=== PATIENT | female | born 1950 ===

== ENCOUNTER 2016-09-30 15:12 | Inpatient (IN) ==
[2016-09-30] MEDS ORDERED: ONDANSETRON 4 MG/2 ML VIAL IV STA (15:35)
[2016-09-30] MEDS ORDERED: ONDANSETRON 4 MG/2 ML VIAL ONE (15:52)
--- NOTE | 2016-09-30 16:09 | EKG Report ---
Stationary ECG Study [facility] ER Test Date: 09/30/2016 4:07:35 PM Pat Name: ADITYA AVERY Department: Room: Gender: F Clipper Counters: : 1950 Requested by: Jose Nieto Order Number: [id number] Reading MD: ANGEL ZUNIGA Intervals [place] Rate: 58 P: 50 MT: 181 QRS: 77 QRSD: 170 T: -12 QT: 468 QTc: 465 Interpretive Statements SINUS RHYTHM WITH OCCASIONAL SUPRAVENTRICULAR PREMATURE COMPLEXES LEFT BUNDLE BRANCH BLOCK Electronically Signed On 10-02-16 15:49:14 CDT by ANGEL ZUNIGA [email or web address]
[2016-09-30 16:15] LABS: Apearance,Urine Slightly Hazy (Clear); Bilirubin,Urine Negative (Negative); Blood, Urine Negative (Negative); Glucose,Urine (UA) Negative (Negative); Ketones,Urine Negative (Negative); Mucus,Urine Occasional /LPF (Occasional); Nitrite,Urine Negative (Negative); Protein,Urine Negative; RBC,Urine <1 /HPF (0-4); Squamous Epithelial Cell,Urine Occasional /HPF (0-10); Urine Color Yellow (Yellow); Urine Specific Gravity 1.009 (1.001-1.035); Urine Urobilinogen < 2.0 EU/DL (0.2-1.0); WBC,Urine 1 /HPF (0-6)
[2016-09-30 16:35] LABS: Basophils % 0.4 % (0.0-0.8); Eosinophils # 0.4 10*3/uL (0.0-0.87); Eosinophils % 4.3 % (0.00-10.9); Hematocrit 32.8 VOL% (35.7-47.0); Hemoglobin 10.7 GM/DL (12.0-16.0); Immature Granulocytes % 0.6 %; Immature Granulocytes Absolute 0.05 #; Lymphocytes # 2.3 10*3/uL (1.4-4.0); Lymphocytes % 26.9 % (21.3-54.2); Mean Corpuscular HGB Conc 32.6 GM/DL (32-36); Mean Corpuscular Hemoglobin 29 PG (27-34); Mean Corpuscular Volume 87.5 FL (87-102); Mean Platelet Volume 8.4 FL (9.6-12.0); Monocytes # 0.6 10*3/uL (0.11-0.8); Monocytes % 6.8 % (1.7-12.7); Neutrophils # 5.2 10*3/uL (1.4-7.4); Platelet Count 336 T/CUMM (130-400); Red Blood Count 3.75 MC/CUMM (3.8-5.5); Red Cell Distribution Width 14.4 % (9.3-17.3); White Blood Count 8.6 T/CUMM (4-12)
[2016-09-30 16:55] LABS: Lactic Acid 0.9 MMOL/L (0.4-2.0)
[2016-09-30 16:56] LABS: Alanine Aminotransferase 27 U/L (13-56); Albumin 2.6 G/DL (3.4-5.0); Alkaline Phosphatase 93 U/L (45-117); Aspartate Amino Transferase 15 U/L (0-37); Bilirubin,Total < 0.39 MG/DL (0.2-1.0); Blood Urea Nitrogen 18 MG/DL (7-18); Calcium 7.9 MG/DL (8.5-10.1); Glucose 89 MG/DL (74-106); Osmolality,Calculated 273.8 MOS/KG (273-304); Potassium 3.8 MMOL/L (3.5-5.1); Sodium 137 MMOL/L (136-145); Total Protein 6.4 G/DL (6.4-8.3)
--- NOTE | 2016-09-30 19:18 | Emergency Department Note ---
Tiarra Burkett Brittany, am scribing for, and in the presence of, Joshua Preston MD 15:38. Mohan Burkett Doug C, MD, personally performed the services described in this documentation, ascribed by Jeni Mayen in my presence, and it is both accurate and complete 918 . Arrival - Arrival Chief Complaint: Weakness ED Nursing Triage Note: c/o weakness and dehydration and ?uti and ulcers to butt. pt was dcd on 09/22 with a uti but was not placed on antibitoics. Mode of Arrival: Stretcher Limitations: No Limitations Source: Patient - History of Present Illness HPI Narrative: Patient is a 66-year-old [place] female who comes emergency room complaining of nausea and vomiting abdominal pain is been going on since her recent discharge from the [facility] on 09/22/2016. Patient has a large sacral decubitus that she is being treated for over the last 3 months. Patient states she is not aware of any fever or chills but she is concerned she may have an ongoing urinary tract infection. Patient states she had been admitted to the hospital therefore 7 days. She denies any respiratory symptoms at present. She has not seen any blood in her vomitus and denies any melena or hematochezia. Onset (ago): week(s) (Started 1 week ago) Consistency: constant Severity: moderate Allergies/Adverse Reactions: Allergies Allergy/AdvReac Type Severity Reaction Status Date / Time Iodinated Contrast Media - AdvReac Unknown/Unable Verified 11/24/14 08:17 Oral and to obtain latex AdvReac Unknown/Unable Verified 11/24/14 08:17 to obtain Home Medications: Home Medications Medication Instructions Recorded Confirmed Type Folic Acid Tab 1 mg PO QAM 11/24/14 09/30/16 History Multivitamin [One Daily] 1 each PO DAILY W/BREAKFAST 11/24/14 09/30/16 History Thiamine Tab [Vitamin B1 Tab] 100 mg PO BEDTIME 11/24/14 09/30/16 History Vit B Cmplx 3/Folic AC/C/Biot 1 tablet PO QAM 11/24/14 09/30/16 History [Indigo-Emiliano Rx Tablet] Aspirin [Ecotrin] 81 mg PO QPM 10/27/15 09/30/16 History Carvedilol 3.125 mg PO BID 10/27/15 09/30/16 History Cholecalciferol (Vitamin D3) 50,000 units PO MO 10/27/15 09/30/16 History [Vitamin D3] Gabapentin 200 mg PO BEDTIME 10/27/15 09/30/16 History Mometasone/Formoterol 100-5 2 puffs PO BID 10/27/15 09/30/16 History [Dulera 100-5] Montelukast Tab [Singulair Tab] 10 mg PO DAILY 10/27/15 09/30/16 History Potassium Chloride 10 meq PO Q12H 10/27/15 09/30/16 History Vitamin E 400 unit PO QAM 10/27/15 09/30/16 History Calcium (Carb)/Vit D 600-400 1 tablet PO BID 09/30/16 09/30/16 History [Caltrate 600 + D] Furosemide Tab [Lasix Tab] 20 mg PO QAM 09/30/16 09/30/16 History Isosorbide Dinitrate 2.5 mg PO BID 09/30/16 09/30/16 History Lisinopril 2.5 mg PO QAM 09/30/16 09/30/16 History Pantoprazole Tab [Protonix Tab] 40 mg PO QPM 09/30/16 09/30/16 History Polyvinyl Alcohol [Artificial 1 drop BOTH EYES QID 09/30/16 09/30/16 History Tears] Spironolactone 25 mg PO BEDTIME 09/30/16 09/30/16 History hydrALAZINE TAB [Apresoline Tab] 10 mg PO BID 09/30/16 09/30/16 History Review of System - Review of System 12 point system: reviewed and no additional remarkable complaints except as stated - Review of System Constitutional: Absent: fever Respiratory: Present: cough (Slight cough) Gastrointestinal: Present: abdominal pain, nausea, vomiting, constipation Skin: Present: other (Wound to the buttocks area ) Medical,Surgical,& Family Hx - Medical History Cardio: History of: CHF, Hypertension, PVD, Cardiovascular Problems No history of: Aneurysm, Cardiac Dysrhythmia, Cerebrovascular Disease, Congenital Heart Disease, CA, Pacemaker, Valvular Heart Disease Psychological: History of: Depression Neurology: History of: Peripheral Neuropathy (both legs) No history of: Brain Aneurysm, Cerebral Hemorrhage, Cerebrovascular Accident , Cerebral Palsy, Dementia, Migraine, Multiple Sclerosis, Parkinson's Disease, Seizures, TIA, Vertigo, Neurologocal Cancer HEENT: History of: Eye Problem (cataract surgery), Dental Problems (poor dentition), Glaucoma No history of: Ear Problem, Oral Cancer Endocrine: History of: Diabetes Mellitus (NIDDM) (says she is diet controlled) No history of: Adrenal Disease, Diabetes Mellitus (IDDM), Dyslipidemia, Thyroid Disorder, Endocrine Cancer, Endocrine Problems Rheumatology: No history of;: Fibromyalgia, Gout, Myasthenia Gravis, Psoriasis, Rheumatoid Arthritis, Sjogrens, Systemic Lupus Erythematosus, Rheumatological Problems Respiratory: History of: Asthma, Intubation, Respiratory Problems (interstitial pulmonary fibrosis) No history of: Bronchitis, COPD, Obstructive Sleep Apnea, Pulmonary Embolism , Pulmonary Hypertension, Pneumonia, Lung Cancer Renal: No history of: Renal (Kidney) Cancer, Dialysis, Renal Failure Genitourinary: No history of: Bladder Problem, Kidney Stones, Recurring Urinary Tract Infections, Genitourinary Cancer, Problems Gastrointestinal: History of: Bowel Obstruction (partial was in the hospital in [place]), GI Problems (chronic intermittent nausea, emesis and diarrhea) No history of: Clostridium Difficile, Crohn's Disease, Diverticulitis/ Diverticulosis, Esophageal Varices, GERD, Gastrointestinal Bleed, Hemorrhoids, Hematochezia, Hepatitis, Liver Problems, Pancreatitis, Polyps, Ulcerative Colitis, Gastrointestinal Cancer Musculoskeletal: History of: Back/Neck Problems (pain- when she lays certain way ), Musculoskeletal Problems (can't walk from injury s/p fall from 4 years ago) No history of: Amputation, Degenerative Disk Disease, Herniated Disk, Osteoporosis, Musculoskeletal Cancer Hematology: History of: Anemia (hemolytic anemia) No history of: Blood Transfusion Reaction Other: History of: Anesthesia Reactions (couldn't wake her up), Anaphylaxis ( IVP dye) No history of: Cancer, Eczema, HIV, Malignant Hyperthermia, MRSA, Vancomycin- Resistant Enterococci, Skin Problems, Miscellaneous Medical Problems - Surgical History Cardiac Surgeries: Sugical HX of: Cardiac Catheterization, Cardiac Surgery ( biopsy breast, hysterectomy, sacral wound closure) Patient Denies: Femoral-Popliteal Bypass Graft, Carotid Endarterectomy, Internal Defibrillator, Vascular Access Devices Thoracic Surgeries: Patient denies;: Organ Transplant, Lobectomy Neurologic Surgeries: Patient denies: Brain Aneurysm, Cerebral Hemorrhage, Neurologic Surgery HEENT Surgeries: Surgical HX of: Eye Surgery (cataracts), Tonsilectomy & Adenoidectomy Patient denies: Carotid Endarterectomy, Thyroid Surgery Abdominal Surgeries: Patient denies: Abdominal Surgery, Appendectomy, Cholecystectomy, Colonoscopy , Gastric Bypass Surgery, EGD, Hernia Repair, Splenectomy Reproductive Surgeries: Surgical HX of;: Gynecologic Surgery, Hysterectomy Patient denies;: Breast Surgery, Section, Dilation and Curettage, Genitourinary Surgery, Tubal Ligation Orthopedic Surgeries: Patient denies;: Implanted Devices, Orthopedic Surgery, Spinal Surgery, Total Hip Replacement, Total Knee Replacement - Family History Family History: Reports;: Family Cancer (grandmother), Family Diabetes, Family Heart Disease, Family Hypertension Denies;: Family Psychiatric Problems, Family Stroke - Social History Smoking Status: Never smoker Frequency of Alcohol Use: None Type of Drug Use: None Exam Vital Signs: Vital Signs Temperature 97.6 F 09/30/16 15:17 Pulse Rate 61 09/30/16 18:31 Respiratory Rate 16 09/30/16 18:31 Blood Pressure 135/56 09/30/16 18:31 O2 Sat by Pulse Oximetry 100 09/30/16 18:31 - General General appearance: alert, in no apparent distress - Head Head exam: Present: atraumatic, normocephalic, normal inspection - Eye Eye exam: Present: normal appearance, PERRL, EOMI. Absent: scleral icterus, conjunctival injection, nystagmus, miosis, mydriasis, periorbital swelling, periorbital tenderness - ENT ENT exam: Present: normal exam, normal oropharynx, mucous membranes moist, TM's normal bilaterally, normal external ear exam - Neck Neck exam: Present: normal inspection, full ROM, trachea midline. Absent: tenderness, meningismus, lymphadenopathy, thyromegaly - Chest Chest inspection: Present: normal inspection, symmetric chest wall rise. Absent : tenderness, rash, abscess - Respiratory Respiratory exam: Present: normal lung sounds bilaterally. Absent: prolonged expiratory phase, rales, respiratory distress, rhonchi, stridor, wheezes - Cardiovascular Cardiovascular exam: Present: regular rate, normal rhythm, normal heart sounds. Absent: murmur, rubs, gallop, clicks, JVD - Abdominal Exam Abdominal exam: Present: soft, normal bowel sounds. Absent: distention, tenderness, guarding, rebound, rigidity - Rectal Exam Rectal exam: Present: deferred - Extremities Exam Extremities exam: Present: normal inspection, full ROM, normal capillary refill. Absent: tenderness, pedal edema, joint swelling, calf tenderness - Back Exam Back exam: Present: normal inspection, full ROM. Absent: tenderness, muscle spasm, rashes - Neurological Exam Neurological exam: Present: alert, oriented X3, CN II-XII intact. Absent: motor sensory deficit - Psychiatric Psychiatric exam: Present: normal affect, normal mood. Absent: depressed, agitated, anxious, flat affect, manic - Skin Skin exam: Present: warm, dry, intact, normal color, other (Patient noted to have a half dollar size decubitus ulcer at the distal sacral/coccygeal area. This is a clean base and is not draining.). Absent: rash, cyanosis, diaphoresis , erythema, pallor, mottled - Other Other exam information: Pt has a urinary cath in place. Course Course Narrative: I discussed patient's laboratory findings and physical findings with her daughter and the patient. I told him I do not see clear indication to admit her to the hospital but there was insistent that she needed to be admitted and would not follow my recommendations for outpatient wound care. They states she is presently getting that and her decubitus is worsening. Patient's clinical presentation, laboratory radiograph findings were discussed with hospitalist operator receptionist the emergency room will see the patient here in the emergency room and evaluate for possible admission. Results - Labs CBC & BMP: 09/30/16 16:21 09/30/16 16:21 Lab Results: I have reviewed the patients labs - EKG EKG results: interpreted by RENZOD EKG shows: bradycardia (58 bpm, left bundle branch block) Disposition Clinical Impression: Malaise Case discussed with: patient, patient's family Disposition: Still a Patient Condition: Stable Time of Disposition: 19:18
[2016-09-30] MEDS ORDERED: GLUCAGON 1 MG VIAL IM PRN (19:48)
[2016-09-30] MEDS ORDERED: DEXTROSE 50% 25 GM/50 ML VIAL IV PRN (19:48)
--- NOTE | 2016-09-30 20:01 | Hospitalist History & Physical ---
Assessment and Plan (1) Sacral wound Status: Chronic Assessment and plan: Patient has sacral wound which is reported to be increasing in size and does not seem to be infected at present. will consult wound care. Current Visit: Yes (2) Anemia Status: Chronic Assessment and plan: Patient seem to have chronic anemia but has worsening hemoglobin hematocrit will check stool Hemoccult iron studies B12 and folate level and reticulocyte count Current Visit: Yes (3) Abdominal pain Status: Acute Assessment and plan: Patient complaining of on and off abdominal pain especially last 2 weeks exam seems to be benign overall we will check the KUB Current Visit: Yes (4) Pulmonary fibrosis Status: Chronic Assessment and plan: History of chronic pulmonary fibrosis seems to be stable without any worsening symptoms subjectively Current Visit: Yes (5) Left bundle branch block (LBBB) Status: Chronic Current Visit: No (6) Type 2 diabetes mellitus Status: Chronic Assessment and plan: We will continue to follow blood sugar before meals and provide short-acting insulin on as needed basis Current Visit: No History of Present Illness Chief complaint: Not feeling well. Sacral wound. Nausea vomiting abdominal pain History of present illness: Ms. Kinney is a 66 year old female with history of pulmonary fibrosis hypertension and type 2 diabetes mellitus. She also has been bedridden for some years after had fall and suffered back injury. She has chronic wound on the sacrum and it is reported getting a little bigger in size and hurting. She has been getting wound care management at [facility] but is not getting better. She came to the emergency room for complaints of nausea vomiting and abdominal pain. She has history of allergies in the past and reports having this pain on and off. She had episode of vomiting yesterday afternoon and with that she has a dual bowel movement but no diarrhea or vomiting today. She has no fever. There was no hematemesis or hematochezia. She was also treated for UTI about 2 weeks ago at the [facility] and has a Lacy catheter since then. She was seen in the ER and not feeling well and requested admission. Daughter say her main concern was wound on the sacrum area which is getting bigger. There is no coughing but she is short of breath which is chronic due to pulmonary fibrosis Home Medications Medication Instructions Recorded Confirmed Type Folic Acid Tab 1 mg PO QAM 11/24/14 09/30/16 History Multivitamin [One Daily] 1 each PO DAILY W/BREAKFAST 11/24/14 09/30/16 History Thiamine Tab [Vitamin B1 Tab] 100 mg PO BEDTIME 11/24/14 09/30/16 History Vit B Cmplx 3/Folic AC/C/Biot 1 tablet PO QAM 11/24/14 09/30/16 History [Indigo-Emiliano Rx Tablet] Aspirin [Ecotrin] 81 mg PO QPM 10/27/15 09/30/16 History Carvedilol 3.125 mg PO BID 10/27/15 09/30/16 History Cholecalciferol (Vitamin D3) 50,000 units PO MO 10/27/15 09/30/16 History [Vitamin D3] Gabapentin 200 mg PO BEDTIME 10/27/15 09/30/16 History Mometasone/Formoterol 100-5 2 puffs PO BID 10/27/15 09/30/16 History [Dulera 100-5] Montelukast Tab [Singulair Tab] 10 mg PO DAILY 10/27/15 09/30/16 History Potassium Chloride 10 meq PO Q12H 10/27/15 09/30/16 History Vitamin E 400 unit PO QAM 10/27/15 09/30/16 History Calcium (Carb)/Vit D 600-400 1 tablet PO BID 09/30/16 09/30/16 History [Caltrate 600 + D] Furosemide Tab [Lasix Tab] 20 mg PO QAM 09/30/16 09/30/16 History Isosorbide Dinitrate 2.5 mg PO BID 09/30/16 09/30/16 History Lisinopril 2.5 mg PO QAM 09/30/16 09/30/16 History Pantoprazole Tab [Protonix Tab] 40 mg PO QPM 09/30/16 09/30/16 History Polyvinyl Alcohol [Artificial 1 drop BOTH EYES QID 09/30/16 09/30/16 History Tears] Spironolactone 25 mg PO BEDTIME 09/30/16 09/30/16 History hydrALAZINE TAB [Apresoline Tab] 10 mg PO BID 09/30/16 09/30/16 History Allergies Allergy/AdvReac Type Severity Reaction Status Date / Time Iodinated Contrast Media - AdvReac Unknown/Unable Verified 11/24/14 08:17 Oral and to obtain latex AdvReac Unknown/Unable Verified 11/24/14 08:17 to obtain Medical,Surgical,& Family Hx - Medical History Cardio: History of: CHF, Hypertension, PVD, Cardiovascular Problems No history of: Aneurysm, Cardiac Dysrhythmia, Cerebrovascular Disease, Congenital Heart Disease, CA, Pacemaker, Valvular Heart Disease Psychological: History of: Depression Neurology: History of: Peripheral Neuropathy (both legs) No history of: Brain Aneurysm, Cerebral Hemorrhage, Cerebrovascular Accident , Cerebral Palsy, Dementia, Migraine, Multiple Sclerosis, Parkinson's Disease, Seizures, TIA, Vertigo, Neurologocal Cancer HEENT: History of: Eye Problem (cataract surgery), Dental Problems (poor dentition), Glaucoma No history of: Ear Problem, Oral Cancer Endocrine: History of: Diabetes Mellitus (NIDDM) (says she is diet controlled) No history of: Adrenal Disease, Diabetes Mellitus (IDDM), Dyslipidemia, Thyroid Disorder, Endocrine Cancer, Endocrine Problems Rheumatology: No history of;: Fibromyalgia, Gout, Myasthenia Gravis, Psoriasis, Rheumatoid Arthritis, Sjogrens, Systemic Lupus Erythematosus, Rheumatological Problems Respiratory: History of: Asthma, Intubation, Respiratory Problems (interstitial pulmonary fibrosis) No history of: Bronchitis, COPD, Obstructive Sleep Apnea, Pulmonary Embolism , Pulmonary Hypertension, Pneumonia, Lung Cancer Renal: No history of: Renal (Kidney) Cancer, Dialysis, Renal Failure Genitourinary: No history of: Bladder Problem, Kidney Stones, Recurring Urinary Tract Infections, Genitourinary Cancer, Problems Gastrointestinal: History of: Bowel Obstruction (partial was in the hospital in [place]), GI Problems (chronic intermittent nausea, emesis and diarrhea) No history of: Clostridium Difficile, Crohn's Disease, Diverticulitis/ Diverticulosis, Esophageal Varices, GERD, Gastrointestinal Bleed, Hemorrhoids, Hematochezia, Hepatitis, Liver Problems, Pancreatitis, Polyps, Ulcerative Colitis, Gastrointestinal Cancer Musculoskeletal: History of: Back/Neck Problems (pain- when she lays certain way ), Musculoskeletal Problems (can't walk from injury s/p fall from 4 years ago) No history of: Amputation, Degenerative Disk Disease, Herniated Disk, Osteoporosis, Musculoskeletal Cancer Hematology: History of: Anemia (hemolytic anemia) No history of: Blood Transfusion Reaction Other: History of: Anesthesia Reactions (couldn't wake her up), Anaphylaxis ( IVP dye) No history of: Cancer, Eczema, HIV, Malignant Hyperthermia, MRSA, Vancomycin- Resistant Enterococci, Skin Problems, Miscellaneous Medical Problems - Surgical History Cardiac Surgeries: Sugical HX of: Cardiac Catheterization, Cardiac Surgery ( biopsy breast, hysterectomy, sacral wound closure) Patient Denies: Femoral-Popliteal Bypass Graft, Carotid Endarterectomy, Internal Defibrillator, Vascular Access Devices Thoracic Surgeries: Patient denies;: Organ Transplant, Lobectomy Neurologic Surgeries: Patient denies: Brain Aneurysm, Cerebral Hemorrhage, Neurologic Surgery HEENT Surgeries: Surgical HX of: Eye Surgery (cataracts), Tonsilectomy & Adenoidectomy Patient denies: Carotid Endarterectomy, Thyroid Surgery Abdominal Surgeries: Patient denies: Abdominal Surgery, Appendectomy, Cholecystectomy, Colonoscopy , Gastric Bypass Surgery, EGD, Hernia Repair, Splenectomy Reproductive Surgeries: Surgical HX of;: Gynecologic Surgery, Hysterectomy Patient denies;: Breast Surgery, Section, Dilation and Curettage, Genitourinary Surgery, Tubal Ligation Orthopedic Surgeries: Patient denies;: Implanted Devices, Orthopedic Surgery, Spinal Surgery, Total Hip Replacement, Total Knee Replacement - Family History Family History: Reports;: Family Cancer (grandmother), Family Diabetes, Family Heart Disease, Family Hypertension Denies;: Family Psychiatric Problems, Family Stroke - Social History Smoking Status: Never smoker Frequency of Alcohol Use: None Type of Drug Use: None Review of systems: Comprehensive review of system was done and negative unless indicated above in HPI Exam - Constitutional Vitals: Period Temp Pulse Resp BP Sys/Moon Pulse Ox Last 24 Hr 97.6 F-97.6 F 53-65 16-18 99-135/50-64 97-100 General appearance: no acute distress, under weight, other (Chronic ill looking) - Head Head exam: Present: normal inspection, normocephalic, atraumatic - Eye Eye exam: Present: EOMI. Absent: conjunctival injection, scleral icterus Pupils: Present: SHELLY, normal accommodation - ENT ENT exam: Present: normal exam, normal oropharynx - Neck Neck exam: Present: other (Supple) - Respiratory Respiratory exam: Present: rales (Bilateral equal entry with the crepitus at the bases on auscultation). Absent: accessory muscle use, rhonchi, stridor, wheezes - Cardiovascular Cardiovascular exam: Present: regular rate and rhythm. Absent: tachycardia - GI/Abdominal GI/Abdominal exam: Present: normal bowel sounds, guarding, soft. Absent: distended, tenderness - Extremities Exam Extremities exam: Present: normal inspection. Absent: edema - Back Exam Back exam: Present: other (Wound at the sacral area with a clean base) - Neurological Exam Neurological exam: Present: alert, other (Able to move all extremities) Results - Labs CBC & BMP: 09/30/16 16:21 09/30/16 16:21 Lab Results: I have reviewed the past 24 hour labs
[2016-09-30 20:10] LABS: % Iron Saturation 9.6 % (18-50)
--- NOTE | 2016-09-30 20:44 | XRay Report ---
XR abdomen 1V Indication: Abdominal pain. Comparison: Abdominal series April 10, 2016. Technique: Supine AP image of the abdomen was obtained. Findings: Reticular and linear interstitial markings in the lung bases have changed little since comparison study and likely are chronic. A component of linear fibrosis is not excluded. No organomegaly is suggested. The bowel gas pattern demonstrates a nonspecific pattern with loops of large and small bowel demonstrating presence of gas without specific findings to suggest obstruction or ileus. Bones and soft tissues demonstrate no acute findings. Impression: 1. No specific process is suggested within the abdomen or pelvis. 09/30/2016 8:40 PM PROCEDURE INTERPRETED AT [facility] DEPARTMENT OF RADIOLOGY Final Report Signed by: Dr. Jeramie Blanca
--- NOTE | 2016-09-30 20:45 | XRay Report ---
XR chest 1V Indication: History of pulmonary fibrosis. Comparison: Chest x-ray 04/08/2016 Technique: Portable AP chest was performed. Findings: Since comparison study little change is demonstrated. The heart size and mediastinal contours are stable. Scoliotic deformity is stable. Reticular stranding of the lung bases compatible with fibrosis appears stable. Impression: 1. No evidence of acute pathology. 09/30/2016 8:41 PM PROCEDURE INTERPRETED AT [facility] DEPARTMENT OF RADIOLOGY Final Report Signed by: Dr. Jeramie Blanca
[2016-09-30] MEDS: MOMETASONE/FORMOTEROL 100-5 INHALER 8.8 GM INH SCH (22:44)
[2016-09-30] MEDS: THIAMINE 100 MG TABLET PO SCH (22:44)
[2016-09-30] MEDS: POLYVINYL ALCOHOL 1.4% OPH SOLN 15 ML BOTTLE BOTH EYES SCH (22:44)
[2016-09-30] MEDS: hydrALAZINE 10 MG TABLET PO SCH (22:44)
[2016-09-30] MEDS: GABAPENTIN 100 MG CAPSULE PO SCH (22:44)
[2016-09-30] MEDS: PANTOPRAZOLE 40 MG TABLET PO SCH (22:44)
[2016-09-30] MEDS: SPIRONOLACTONE 25 MG TABLET PO SCH (22:44)
[2016-09-30] MEDS: CALCIUM (CARBONATE)/VITAMIN D 600 MG-400 UNIT TABLET PO SCH (22:44)
[2016-09-30] MEDS: CARVEDILOL 3.125 MG TABLET PO SCH (22:45)
[2016-09-30] MEDS: ENOXAPARIN 40 MG/0.4 ML SYRINGE SUBCUT SCH (22:45)
[2016-09-30] MEDS: INSULIN REGULAR 100 UNIT/ML SUBCUT SCH (22:45)
[2016-10-01 02:42] LABS: Basophils % 0.4 % (0.0-0.8); Eosinophils # 0.3 10*3/uL (0.0-0.87); Eosinophils % 3.9 % (0.00-10.9); Hematocrit 35.1 VOL% (35.7-47.0); Hemoglobin 11.3 GM/DL (12.0-16.0); Immature Granulocytes % 0.5 %; Immature Granulocytes Absolute 0.04 #; Lymphocytes # 2.1 10*3/uL (1.4-4.0); Lymphocytes % 25.9 % (21.3-54.2); Mean Corpuscular HGB Conc 32.2 GM/DL (32-36); Mean Corpuscular Hemoglobin 28 PG (27-34); Mean Corpuscular Volume 87.1 FL (87-102); Mean Platelet Volume 8.4 FL (9.6-12.0); Monocytes # 0.8 10*3/uL (0.11-0.8); Monocytes % 9.7 % (1.7-12.7); Neutrophils # 4.9 10*3/uL (1.4-7.4); Neutrophils % 59.6 % (38.7-73.9); Platelet Count 345 T/CUMM (130-400); Red Blood Count 4.03 MC/CUMM (3.8-5.5); Red Cell Distribution Width 14.4 % (9.3-17.3); White Blood Count 8.2 T/CUMM (4-12)
[2016-10-01 03:34] LABS: Folate > 24.0 NG/ML (5.4-24.0); Vitamin B12 521 PG/ML (211-911)
[2016-10-01] MEDS: FERROUS SULFATE 325 MG TABLET PO SCH ×2 (08:25→21:23)
[2016-10-01] MEDS: CARVEDILOL 3.125 MG TABLET PO SCH ×2 (08:25→21:23)
[2016-10-01] MEDS: CALCIUM (CARBONATE)/VITAMIN D 600 MG-400 UNIT TABLET PO SCH ×2 (08:25→21:23)
[2016-10-01] MEDS: MONTELUKAST 10 MG TABLET PO SCH (08:25)
[2016-10-01] MEDS: FOLIC ACID 1 MG TABLET PO SCH (08:25)
[2016-10-01] MEDS: MULTIVITAMIN (CENTRUM) TABLET PO SCH (08:25)
[2016-10-01] MEDS: POLYVINYL ALCOHOL 1.4% OPH SOLN 15 ML BOTTLE BOTH EYES SCH ×4 (08:26→21:26)
[2016-10-01] MEDS: LISINOPRIL 2.5 MG TABLET PO SCH (08:26)
[2016-10-01] MEDS: INSULIN REGULAR 100 UNIT/ML SUBCUT SCH ×4 (08:26→23:37)
[2016-10-01] MEDS: hydrALAZINE 10 MG TABLET PO SCH ×2 (08:26→23:37)
[2016-10-01] MEDS: MOMETASONE/FORMOTEROL 100-5 INHALER 8.8 GM INH SCH ×2 (08:27→21:26)
--- NOTE | 2016-10-01 08:56 | Gastrointestinal Consult Note ---
Assessment and Plan (1) Anemia Status: Chronic Assessment and plan: This patient had a normal colonoscopy done in May 2010 which demonstrated tortuous colon with diverticulosis but otherwise was completely normal. I do not believe that her fibrosis would allow her to tolerate another procedure nor does she have guaiac positivity or bright red blood/melena at this time. She does have diverticulosis, and more likely anemia secondary to losses with the pulmonary fibrosis suppressing her bone marrow as well as a sacral decubitus actually weeping blood. She states that she had tried to do an upper endoscopy at another hospital in March but that this is landed her in the CCU and they were unable to complete the procedure. She does not wish to have another upper endoscopy. I do not feel that she needs this. Again the patient been seen by Dr. Araujo in April 2016 who did not feel that she needed immediate endoscopy despite the fact that she had NG tube trauma induced hematemesis. Given the stability of her hematocrit for many years I think no further workup is required. Thank you for allowing me to see this very pleasant patient please follow-up with Dr. Neff (supervising Dr. Araujo back in April 2016) or myself in the future. Current Visit: Yes (2) Irritable bowel syndrome Status: Acute Assessment and plan: This patient has alternating diarrhea and constipation with bowel movements every 2-3 days alternating with diarrhea up to 4 times per day. She likely will benefit from Citrucel and I will go ahead and add this to her bowel regimen. Because she alternates I would prefer doing this then putting her on MiraLAX or Colestid which can make you diarrheal or constipated respectively. Colonoscopy was negative for colitis, she does not require further workup for this condition. Current Visit: Yes (3) Periumbilical pain, chronic Status: Acute Assessment and plan: The periumbilical pain is reflective of the IBS above. Will use Citrucel twice a day to see if this helps. Again I thank you for the opportunity see this patient but will sign off at this time. Current Visit: Yes History of Present Illness Chief complaint: Mild stable anemia, neg colo 2010, no endoscopy desired. History of present illness: Ms. Kinney is a 66 year old female who has a history of low-grade anemia currently with hematocrit of 35.1% without evidence of melena or bright red blood per rectum. 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 She had been seen at that time because of NG tube trauma resulting in hematemesis. I do not have the patient had been seen previously by Dr. Mooney with colonoscopy as recently as 05/11/10 at which time she was noted to have a tortuous colon with diverticula that was essentially normal. The patient was having weight loss at that time which in retrospect was likely secondary to her pulmonary fibrosis. Patient states that she also recently undergone hemorrhoidal bleeding requiring hemorrhoidectomy sometime the last 2-3 years. She had been considered for a upper endoscopy as well recently possibly due to the anemia versus weight loss but unfortunately had trouble with the anesthesia and ended up in the CCU by patient report. She does not ever want to have another upper endoscopy given her bad experience. I cannot blame her. Her hematocrit is nearly normal considering the sacral decubiti and pulmonary fibrosis producing blood loss and anemia of chronic disease respectively. She is not having any bright red blood per rectum or black tarry bowel movements. Her stools are actually guaiac negative on my exam today. She has some mild left lower quadrant pain and alternates between diarrhea and constipation all consistent with classic variant IBS. She likely would benefit from Citrucel given daily. She really does not need another colonoscopy until May 2020 and given her comorbidities and fragility probably should not have colorectal cancer screening repeated at all. She does not have much in the way of heartburn or indigestion. She states that her weight fluctuates. Home Medications Medication Instructions Recorded Confirmed Type Folic Acid Tab 1 mg PO QAM 11/24/14 09/30/16 History Multivitamin [One Daily] 1 each PO DAILY W/BREAKFAST 11/24/14 09/30/16 History Thiamine Tab [Vitamin B1 Tab] 100 mg PO BEDTIME 11/24/14 09/30/16 History Vit B Cmplx 3/Folic AC/C/Biot 1 tablet PO QAM 11/24/14 09/30/16 History [Indigo-Emiliano Rx Tablet] Aspirin [Ecotrin] 81 mg PO QPM 10/27/15 09/30/16 History Carvedilol 3.125 mg PO BID 10/27/15 09/30/16 History Cholecalciferol (Vitamin D3) 50,000 units PO MO 10/27/15 09/30/16 History [Vitamin D3] Gabapentin 200 mg PO BEDTIME 10/27/15 09/30/16 History Mometasone/Formoterol 100-5 2 puffs PO BID 10/27/15 09/30/16 History [Dulera 100-5] Montelukast Tab [Singulair Tab] 10 mg PO DAILY 10/27/15 09/30/16 History Potassium Chloride 10 meq PO Q12H 10/27/15 09/30/16 History Vitamin E 400 unit PO QAM 10/27/15 09/30/16 History Calcium (Carb)/Vit D 600-400 1 tablet PO BID 09/30/16 09/30/16 History [Caltrate 600 + D] Furosemide Tab [Lasix Tab] 20 mg PO QAM 09/30/16 09/30/16 History Isosorbide Dinitrate 2.5 mg PO BID 09/30/16 09/30/16 History Lisinopril 2.5 mg PO QAM 09/30/16 09/30/16 History Pantoprazole Tab [Protonix Tab] 40 mg PO QPM 09/30/16 09/30/16 History Polyvinyl Alcohol [Artificial 1 drop BOTH EYES QID 09/30/16 09/30/16 History Tears] Spironolactone 25 mg PO BEDTIME 09/30/16 09/30/16 History hydrALAZINE TAB [Apresoline Tab] 10 mg PO BID 09/30/16 09/30/16 History Allergies Allergy/AdvReac Type Severity Reaction Status Date / Time Iodinated Contrast Media - AdvReac Unknown/Unable Verified 11/24/14 08:17 Oral and to obtain latex AdvReac Unknown/Unable Verified 11/24/14 08:17 to obtain Medical,Surgical,& Family Hx - Medical History Cardio: History of: CHF, Hypertension, PVD, Cardiovascular Problems No history of: Aneurysm, Cardiac Dysrhythmia, Cerebrovascular Disease, Congenital Heart Disease, [place], Pacemaker, Valvular Heart Disease Psychological: History of: Depression Neurology: History of: Peripheral Neuropathy (both legs) No history of: Brain Aneurysm, Cerebral Hemorrhage, Cerebrovascular Accident , Cerebral Palsy, Dementia, Migraine, Multiple Sclerosis, Parkinson's Disease, Seizures, TIA, Vertigo, Neurologocal Cancer HEENT: History of: Eye Problem (cataract surgery), Dental Problems (poor dentition), Glaucoma No history of: Ear Problem, Oral Cancer Endocrine: History of: Diabetes Mellitus (NIDDM) (says she is diet controlled) No history of: Adrenal Disease, Diabetes Mellitus (IDDM), Dyslipidemia, Thyroid Disorder, Endocrine Cancer, Endocrine Problems Rheumatology: No history of;: Fibromyalgia, Gout, Myasthenia Gravis, Psoriasis, Rheumatoid Arthritis, Sjogrens, Systemic Lupus Erythematosus, Rheumatological Problems Respiratory: History of: Asthma, Intubation, Respiratory Problems (interstitial pulmonary fibrosis) No history of: Bronchitis, COPD, Obstructive Sleep Apnea, Pulmonary Embolism , Pulmonary Hypertension, Pneumonia, Lung Cancer Renal: No history of: Renal (Kidney) Cancer, Dialysis, Renal Failure Genitourinary: No history of: Bladder Problem, Kidney Stones, Recurring Urinary Tract Infections, Genitourinary Cancer, Problems Gastrointestinal: History of: Bowel Obstruction (partial was in the hospital in [place]), GI Problems (chronic intermittent nausea, emesis and diarrhea) No history of: Clostridium Difficile, Crohn's Disease, Diverticulitis/ Diverticulosis, Esophageal Varices, GERD, Gastrointestinal Bleed, Hemorrhoids, Hematochezia, Hepatitis, Liver Problems, Pancreatitis, Polyps, Ulcerative Colitis, Gastrointestinal Cancer Musculoskeletal: History of: Back/Neck Problems (pain- when she lays certain way ), Musculoskeletal Problems (can't walk from injury s/p fall from 4 years ago) No history of: Amputation, Degenerative Disk Disease, Herniated Disk, Osteoporosis, Musculoskeletal Cancer Hematology: History of: Anemia (hemolytic anemia) No history of: Blood Transfusion Reaction Other: History of: Anesthesia Reactions (couldn't wake her up), Anaphylaxis ( IVP dye) No history of: Cancer, Eczema, HIV, Malignant Hyperthermia, MRSA, Vancomycin- Resistant Enterococci, Skin Problems, Miscellaneous Medical Problems - Surgical History Cardiac Surgeries: Sugical HX of: Cardiac Catheterization, Cardiac Surgery ( biopsy breast, hysterectomy, sacral wound closure) Patient Denies: Femoral-Popliteal Bypass Graft, Carotid Endarterectomy, Internal Defibrillator, Vascular Access Devices Thoracic Surgeries: Patient denies;: Organ Transplant, Lobectomy Neurologic Surgeries: Patient denies: Brain Aneurysm, Cerebral Hemorrhage, Neurologic Surgery HEENT Surgeries: Surgical HX of: Eye Surgery (cataracts), Tonsilectomy & Adenoidectomy Patient denies: Carotid Endarterectomy, Thyroid Surgery Abdominal Surgeries: Patient denies: Abdominal Surgery, Appendectomy, Cholecystectomy, Colonoscopy , Gastric Bypass Surgery, EGD, Hernia Repair, Splenectomy Reproductive Surgeries: Surgical HX of;: Gynecologic Surgery, Hysterectomy Patient denies;: Breast Surgery, Section, Dilation and Curettage, Genitourinary Surgery, Tubal Ligation Orthopedic Surgeries: Patient denies;: Implanted Devices, Orthopedic Surgery, Spinal Surgery, Total Hip Replacement, Total Knee Replacement - Family History Family History: Reports;: Family Cancer (grandmother), Family Diabetes, Family Heart Disease, Family Hypertension Denies;: Family Psychiatric Problems, Family Stroke - Social History Smoking Status: Never smoker Frequency of Alcohol Use: None Type of Drug Use: None Review of systems: Constitutional: Denies fever, chills, and vomiting, mild nausea at times Eyes: Denies dry eyes, and scleral icterus HENT: Denies headaches Cardiovascular: Denies acute chest pain and claudication Respiratory: Admits to shortness of breath, wheezing, and difficulty breathing, as well as cough Gastrointestinal: As noted in the HPI Genitourinary: Denies dysuria and hematuria Neurologic: Denies vision loss, and loss of sensation Musculoskeletal: Denies joint swelling, but does have joint stiffness, and muscular weakness Psychiatric: Admits to depression but no ran symptoms Heme-Lymph: Denies easy bruising, lymph node enlargement or tenderness, night sweats, excessive bleeding Allergies-immunologic: Denies pruritus and rhinorrhea Exam - Constitutional Vitals: Period Temp Pulse Resp BP Sys/Moon Pulse Ox Last 24 Hr 97.5 F-99.0 F 53-78 16-20 99-135/49-64 92-100 General appearance: under weight Exam: Well-developed somewhat poorly nourished [place] female with carious dentition in mild distress. Constitutional: Well-developed, well-nourished, alert, and in no acute distress Head and face: Head: Normocephalic atraumatic Eyes: Conjunctiva without injection, no gross scleral icterus, pupils equal and round bilaterally Ears: Intact to conversation in both ears Nose: External appearance is normal, nares patent Mouth: Oral mucous membranes moist without erythema dentition noted to be sparse and carious Neck: Normal appearance, no masses or tenderness, trachea midline Thyroid: Gland midline and appropriate size for age Respiratory: Normal respiratory effort, prominent Velcro-like crackles throughout all lung fine most prominent in the middle lung fine. I do not detect any rales there are a few faint expiratory wheezes noted Cardiovascular: Regular rate and rhythm, normal S1, S2, the exam is without rubs, murmurs or gallops. Gastrointestinal: Periumbilical tenderness and tenderness in the bilateral lower quadrants on deep palpation. Normal active bowel sounds, tone normal without rigidity or guarding, no masses present, no hepatomegaly, no spleen tip felt. Rectal exam showed brown stool, this was guaiac negative, moderate internal and external hemorrhoids noted. There is a sacral decubitus noted up into the right which is fairly deep. Lymphatic: Neck without adenopathy, axilla without lymphadenopathy present Musculoskeletal: Right and left lower extremities without evidence of edema Skin and subcutaneous tissue: No rashes or ulcerations noted, normal skin turgor, digits and nails without clubbing/cyanosis/deformities. Neurologic: The patient is grossly oriented to person place and time, cranial nerves show tongue movements are normal with normal tongue extrusion midline, light touch sensation is intact. Psychiatric: No hallucinations or delusions are present, does not appear depressed Results - Labs CBC & BMP: 10/01/16 02:19 09/30/16 16:21
--- NOTE | 2016-10-01 09:45 | Hospitalist Progress Note ---
Assessment and Plan (1) Abdominal pain Status: Acute Assessment and plan: GI is following, will follow recommendations. Current Visit: Yes (2) Sacral wound Status: Chronic Assessment and plan: Wound care nurse to see. WC Current Visit: Yes (3) Anemia Status: Chronic Assessment and plan: Iron level is low, GI is following. We will start Iron supplements Current Visit: No (4) Pulmonary fibrosis Status: Acute Assessment and plan: History of chronic pulmonary fibrosis seems to be stable without any worsening symptoms subjectively. Oxygen prn Current Visit: No (5) Type 2 diabetes mellitus Status: Chronic Assessment and plan: Blood sugar is stable, HbA1c level Current Visit: No (6) Left bundle branch block (LBBB) Status: Chronic Assessment and plan: This is chronic, will get a set of cardiac enzymes. Current Visit: No Hospitalist: Subjective Interval history: Patient complains of pain in her sacral ulcer.She denies any episode of GI bleed during admission. She requests for oxygen prn for her underlying pulmonary fibrosis. Exam - Constitutional Vitals: Period Temp Pulse Resp BP Sys/Moon Pulse Ox Last 24 Hr 97.5 F-99.0 F 53-78 16-20 99-135/49-64 92-100 General appearance: no acute distress - Head Head exam: Present: normal inspection - Respiratory Respiratory exam: Present: decreased breath sounds - Cardiovascular Cardiovascular exam: Present: regular rate and rhythm - GI/Abdominal GI/Abdominal exam: Present: normal bowel sounds - Extremities Exam Extremities exam: Present: other (sacral decubitus ulcer) - Neurological Exam Neurological exam: Present: alert, oriented X3 Results - Labs CBC & BMP: 10/01/16 02:19 09/30/16 16:21 Lab Results: I have reviewed the past 24 hour labs
[2016-10-01 10:43] LABS: Troponin I Only 0.025 NG/ML (0.00-0.045)
[2016-10-01] MEDS: ISOSORBIDE DINITRATE 10 MG TABLET PO SCH ×2 (11:42→21:22)
[2016-10-01] MEDS: IRON (CARBONYL) 45 MG TABLET PO SCH (11:43)
[2016-10-01] MEDS ORDERED: METHYLCELLULOSE 500 MG TABLET PO SCH (21:00)
[2016-10-01] MEDS: PANTOPRAZOLE 40 MG TABLET PO SCH (21:23)
[2016-10-01] MEDS: ASPIRIN EC 81 MG TABLET PO SCH (21:23)
[2016-10-01] MEDS: THIAMINE 100 MG TABLET PO SCH (21:23)
[2016-10-01] MEDS: SPIRONOLACTONE 25 MG TABLET PO SCH (21:23)
[2016-10-01] MEDS: GABAPENTIN 100 MG CAPSULE PO SCH (21:23)
[2016-10-01] MEDS: ENOXAPARIN 40 MG/0.4 ML SYRINGE SUBCUT SCH (21:23)
[2016-10-02] MEDS: INSULIN REGULAR 100 UNIT/ML SUBCUT SCH ×3 (07:38→16:33)
[2016-10-02] MEDS: POLYVINYL ALCOHOL 1.4% OPH SOLN 15 ML BOTTLE BOTH EYES SCH ×4 (08:38→21:39)
[2016-10-02] MEDS: MULTIVITAMIN (CENTRUM) TABLET PO SCH (08:38)
[2016-10-02] MEDS: hydrALAZINE 10 MG TABLET PO SCH ×2 (08:38→21:39)
[2016-10-02] MEDS: CALCIUM (CARBONATE)/VITAMIN D 600 MG-400 UNIT TABLET PO SCH ×2 (08:38→21:39)
[2016-10-02] MEDS: LISINOPRIL 2.5 MG TABLET PO SCH (08:39)
[2016-10-02] MEDS: IRON (CARBONYL) 45 MG TABLET PO SCH (08:39)
[2016-10-02] MEDS: CARVEDILOL 3.125 MG TABLET PO SCH ×2 (08:39→21:39)
[2016-10-02] MEDS: FOLIC ACID 1 MG TABLET PO SCH (08:39)
[2016-10-02] MEDS: MONTELUKAST 10 MG TABLET PO SCH (08:39)
[2016-10-02] MEDS: MOMETASONE/FORMOTEROL 100-5 INHALER 8.8 GM INH SCH ×2 (08:39→21:40)
[2016-10-02] MEDS: FERROUS SULFATE 325 MG TABLET PO SCH ×2 (08:39→21:39)
[2016-10-02] MEDS: ISOSORBIDE DINITRATE 10 MG TABLET PO SCH ×2 (08:41→21:39)
--- NOTE | 2016-10-02 10:31 | Hospitalist Progress Note ---
Assessment and Plan (1) Abdominal pain Status: Acute Assessment and plan: Improved. Appreciates GI's input. Current Visit: Yes (2) Sacral wound Status: Chronic Assessment and plan: WC grew gram negative rods and gram positive cocci. Wound care nurse to see in am. We will also consult surgery and ID Start IV Zosyn and Vanc Current Visit: Yes (3) Anemia Status: Chronic Assessment and plan: Iron level is low. GI feels this is due to losses with the pulmonary fibrosis suppressing her bone marrow as well as a sacral decubitus actually weeping blood. Plan continue with Fe supplements Current Visit: No (4) Pulmonary fibrosis Status: Acute Assessment and plan: History of chronic pulmonary fibrosis seems to be stable without any worsening symptoms subjectively. Oxygen prn Current Visit: No (5) Type 2 diabetes mellitus Status: Chronic Assessment and plan: Blood sugar is stable, HbA1c level-5.8 Current Visit: No (6) Left bundle branch block (LBBB) Status: Chronic Assessment and plan: This is chronic, cardiac enzymes-negative, no chest pain, chest tightness. Current Visit: No Hospitalist: Subjective Interval history: Patient still complaining of pain in her buttocks. GI thinks anemia may be due to losses with the pulmonary fibrosis suppressing her bone marrow as well as a sacral decubitus actually weeping blood.WC grew gram negative rods and gram positive cocci. Exam - Constitutional Vitals: Period Temp Pulse Resp BP Sys/Moon Pulse Ox Last 24 Hr 96.7 F-98.4 F 53-70 18-22 106-122/53-63 93-100 General appearance: no acute distress - Head Head exam: Present: normal inspection - Respiratory Respiratory exam: Present: clear to auscultation bilaterally, rales - Cardiovascular Cardiovascular exam: Present: regular rate and rhythm - GI/Abdominal GI/Abdominal exam: Present: normal bowel sounds - Extremities Exam Extremities exam: Present: other (sacral decubitus ulcer) - Neurological Exam Neurological exam: Present: alert, oriented X3 Results - Labs CBC & BMP: 10/01/16 02:19 09/30/16 16:21 Lab Results: I have reviewed the past 24 hour labs
[2016-10-02] MEDS ORDERED: VANCOMYCIN INJ 1,000 MG in SODIUM CHLORIDE 0.9% 250 ML IV ONE (10:35)
[2016-10-02] MEDS: VANCOMYCIN INJ 750 MG in SODIUM CHLORIDE 0.9% 250 ML IV SCH (11:27)
[2016-10-02] MEDS: PIPERACILLIN/TAZOBACTAM 3,375 MG in SODIUM CHLORIDE 0.9% 100 ML IV SCH ×2 (12:54→21:41)
[2016-10-02] MEDS: GABAPENTIN 100 MG CAPSULE PO SCH (21:39)
[2016-10-02] MEDS: ENOXAPARIN 40 MG/0.4 ML SYRINGE SUBCUT SCH (21:39)
[2016-10-02] MEDS: THIAMINE 100 MG TABLET PO SCH (21:39)
[2016-10-02] MEDS: ASPIRIN EC 81 MG TABLET PO SCH (21:39)
[2016-10-02] MEDS: SPIRONOLACTONE 25 MG TABLET PO SCH (21:39)
[2016-10-02] MEDS: PANTOPRAZOLE 40 MG TABLET PO SCH (21:39)
[2016-10-03] MEDS: INSULIN REGULAR 100 UNIT/ML SUBCUT SCH ×5 (00:01→21:53)
[2016-10-03] MEDS: VANCOMYCIN INJ 750 MG in SODIUM CHLORIDE 0.9% 250 ML IV SCH ×2 (02:02→23:22)
[2016-10-03] MEDS: PIPERACILLIN/TAZOBACTAM 3,375 MG in SODIUM CHLORIDE 0.9% 100 ML IV SCH (05:33)
[2016-10-03 06:28] LABS: Basophils % 0.5 % (0.0-0.8); Eosinophils # 0.3 10*3/uL (0.0-0.87); Eosinophils % 4.4 % (0.00-10.9); Hematocrit 30.1 VOL% (35.7-47.0); Hemoglobin 9.9 GM/DL (12.0-16.0); Immature Granulocytes % 0.5 %; Immature Granulocytes Absolute 0.04 #; Lymphocytes # 2.5 10*3/uL (1.4-4.0); Lymphocytes % 33.6 % (21.3-54.2); Mean Corpuscular HGB Conc 32.9 GM/DL (32-36); Mean Corpuscular Hemoglobin 29 PG (27-34); Mean Corpuscular Volume 87.2 FL (87-102); Mean Platelet Volume 8.8 FL (9.6-12.0); Monocytes # 0.6 10*3/uL (0.11-0.8); Monocytes % 7.8 % (1.7-12.7); Neutrophils # 3.9 10*3/uL (1.4-7.4); Neutrophils % 53.2 % (38.7-73.9); Platelet Count 276 T/CUMM (130-400); Red Blood Count 3.45 MC/CUMM (3.8-5.5); Red Cell Distribution Width 14.5 % (9.3-17.3); White Blood Count 7.3 T/CUMM (4-12)
[2016-10-03 06:51] LABS: Calcium 8.2 MG/DL (8.5-10.1); Osmolality,Calculated 279.4 MOS/KG (273-304); Potassium 3.9 MMOL/L (3.5-5.1)
--- NOTE | 2016-10-03 10:27 | Physician Query Form ---
CLICK EDIT DOCUMENT TO SELECT QUERY ANSWER --> OK --> SIGN Jamila Worley RN Clinical Extractive Metallurgist W) [phone] (f) [phone] [email or web address] PROVIDERS: Make your selection(s) from the choices in EACH section by typing an "x" and enter comments in the comment section Please use your independent medical judgment in providing your response. This request does not imply that any particular answer is desired or expected. CLINICAL INDICATORS: (Providers should not edit this section) Based on documentation of "chronic sacral decubitus". Please clarify the stage of the sacral decubitus. Based on the above, could you please provide further clarification regarding the ulcer/wound? LOCATION OF WOUND/ULCER: Sacrum IF A PRESSURE ULCER, PLEASE ALSO INCLUDE THE STAGE* OF THE ULCER: ( ) Stage 1 - Skin intact, non-blanchable redness (x ) Stage 2 - Partial thickness loss of dermis, includes intact or open blister ( ) Stage 3 - Full thickness tissue not including bone, tendon, or muscle ( ) Stage 4 - Full thickness tissue loss, including exposed bone, tendon, or muscle ( ) Unstageable - Full thickness tissue loss in which the base is covered by slough (yellow, adler, yanes, green or brown) and/or eschar (adler, brown or black) in the wound bed. ( ) Suspected Deep Tissue Injury - Purple or maroon localized area of discolored intact skin or blood-filled blister due to damage of underlying soft tissue from pressure and/or shear. The area may be preceded by tissue that is painful, firm, mushy, boggy, warmer or cooler as compared to adjacent tissue. ( ) Clinically unable to determine *Source: National Pressure Ulcer Advisory Panel (NPUAP) COMMENTS: PLEASE ALSO DOCUMENT RESPONSE IN PROGRESS NOTES AND/OR DISCHARGE SUMMARY Use of terms such as suspected, likely, or probable (associated with a specific diagnosis that is being evaluated, monitored, or treated as if it exists) are acceptable and can be restated in the discharge summary if not ruled out. MTDD
[2016-10-03] MEDS: CALCIUM (CARBONATE)/VITAMIN D 600 MG-400 UNIT TABLET PO SCH ×2 (10:28→21:48)
[2016-10-03] MEDS: LISINOPRIL 2.5 MG TABLET PO SCH (10:28)
[2016-10-03] MEDS: hydrALAZINE 10 MG TABLET PO SCH ×2 (10:29→21:49)
[2016-10-03] MEDS: MULTIVITAMIN (CENTRUM) TABLET PO SCH (10:29)
[2016-10-03] MEDS: ISOSORBIDE DINITRATE 10 MG TABLET PO SCH ×2 (10:29→21:49)
[2016-10-03] MEDS: IRON (CARBONYL) 45 MG TABLET PO SCH (10:29)
[2016-10-03] MEDS: FERROUS SULFATE 325 MG TABLET PO SCH ×2 (10:29→21:48)
[2016-10-03] MEDS: MONTELUKAST 10 MG TABLET PO SCH (10:30)
[2016-10-03] MEDS: POLYVINYL ALCOHOL 1.4% OPH SOLN 15 ML BOTTLE BOTH EYES SCH ×4 (10:31→21:52)
[2016-10-03] MEDS: FOLIC ACID 1 MG TABLET PO SCH (10:31)
[2016-10-03] MEDS: CARVEDILOL 3.125 MG TABLET PO SCH ×2 (10:31→21:46)
[2016-10-03] MEDS: MOMETASONE/FORMOTEROL 100-5 INHALER 8.8 GM INH SCH ×2 (10:31→21:52)
[2016-10-03] MEDS ORDERED: SKIN HEALING OINT (AQUAPHOR) 50 GM TUBE TOP PRN (10:40)
--- NOTE | 2016-10-03 10:47 | Hospitalist Progress Note ---
Assessment and Plan (1) Abdominal pain Status: Acute Assessment and plan: Improved. Appreciates GI's input. Current Visit: Yes (2) Sacral wound Status: Chronic Assessment and plan: WC grew gram negative rods and gram positive cocci. Wound care nurse to see in am. We are awaiting surgery and ID's consults Consult IV Zosyn and Vanc Current Visit: Yes (3) Anemia Status: Chronic Assessment and plan: Iron level is low. GI feels this is due to losses with the pulmonary fibrosis suppressing her bone marrow as well as a sacral decubitus actually weeping blood. Plan continue with Fe supplements Current Visit: No (4) Pulmonary fibrosis Status: Acute Assessment and plan: History of chronic pulmonary fibrosis seems to be stable without any worsening symptoms subjectively. Oxygen prn Current Visit: No (5) Type 2 diabetes mellitus Status: Chronic Assessment and plan: Blood sugar is stable, HbA1c level-5.8 Current Visit: No (6) Left bundle branch block (LBBB) Status: Chronic Assessment and plan: This is chronic, cardiac enzymes-negative, no chest pain, chest tightness. Current Visit: No Hospitalist: Subjective Interval history: Patient seen. No new complaints. Awaiting Surgery and ID' s consults. Exam - Constitutional Vitals: Period Temp Pulse Resp BP Sys/Moon Pulse Ox Last 24 Hr 96.9 F-98.7 F 53-68 18-20 107-118/51-59 95-100 General appearance: no acute distress - Head Head exam: Present: normal inspection - Respiratory Respiratory exam: Present: clear to auscultation bilaterally, rales - Cardiovascular Cardiovascular exam: Present: regular rate and rhythm - GI/Abdominal GI/Abdominal exam: Present: normal bowel sounds - Extremities Exam Extremities exam: Present: other (sacral ulcers) - Neurological Exam Neurological exam: Present: alert, oriented X3 Results - Labs CBC & BMP: 10/03/16 05:22 10/03/16 05:22 Lab Results: I have reviewed the past 24 hour labs
--- NOTE | 2016-10-03 12:07 | Infectious Disease Consult ---
Assessment and Plan (1) Irritable bowel syndrome Status: Acute Current Visit: Yes (2) Pulmonary fibrosis Status: Chronic Current Visit: Yes (3) Sacral wound Status: Chronic Assessment and plan: The patient's wound has some sloughy material centrally but it is not clinically infected. She has not had any fever no leukocytosis. The culture will stop was positive but this wound has been contaminated with stool and will culture positive when swabbed. Recommendations: I recommend no antibiotics for this patient but instead aggressive local wound care. She may need the sloughy tissue debrided at some point on may be topical therapies can be used to get rid of the slough. I advised the patient and her daughter that in the absence of sepsis, the risks of antibiotics [particularly C. difficile associated diarrhea] outweigh the benefits and therefore I will not recommend them at this time. Attention should be kept returning patient frequently, avoiding long periods in a wheelchair, and avoiding prolonged soiling of her diaper. They were okay with this plan. Will stop vancomycin and Zosyn. Thank you very much for the consult. Call again as needed. Current Visit: Yes (4) CHF (congestive heart failure) Status: Acute Current Visit: No History of Present Illness Chief complaint: Sacral wound infection History of present illness: Ms. Kinney is a 66 year old female who has been bedbound for many years following damage to her back causing inability to walk. She has been sitting in a wheelchair a lot and over the past 3 months developed wound to the sacral area it started as a pimple according to her daughter and it progressed to an open wound which is enlarging over the past few weeks. The patient was in hospital 2 weeks ago at the [facility] and treated for urinary tract infection; at that time she had fever and apparently a urine culture positive. She was started on antibiotics for that and at that time a Lacy catheter was placed as she keeps staying wet and said that is promoting worsening of her wound. Additionally the patient has a problem with chronic diarrhea and has a diagnosis of irritable bowel syndrome. She states salt a lot and her daughter says that stool would often be in the wound. She presented to the hospital this time because the sacral wound is getting bigger and the daughter feels that what home health is doing is not helping. The patient has not had any fever recently, that is not since the urinary tract infection 2 weeks ago. She does not really feel ill per se and the main problem is just the wound not healing. A culture was done of the wound swab and several organisms are growing and I am asked to assist with antibiotics. She has been on vancomycin and Zosyn since admission. Home Medications Medication Instructions Recorded Confirmed Type Folic Acid Tab 1 mg PO QAM 11/24/14 09/30/16 History Multivitamin [One Daily] 1 each PO DAILY W/BREAKFAST 11/24/14 09/30/16 History Thiamine Tab [Vitamin B1 Tab] 100 mg PO BEDTIME 11/24/14 09/30/16 History Vit B Cmplx 3/Folic AC/C/Biot 1 tablet PO QAM 11/24/14 09/30/16 History [Indigo-Emiliano Rx Tablet] Aspirin [Ecotrin] 81 mg PO QPM 10/27/15 09/30/16 History Carvedilol 3.125 mg PO BID 10/27/15 09/30/16 History Cholecalciferol (Vitamin D3) 50,000 units PO MO 10/27/15 09/30/16 History [Vitamin D3] Gabapentin 200 mg PO BEDTIME 10/27/15 09/30/16 History Mometasone/Formoterol 100-5 2 puffs PO BID 10/27/15 09/30/16 History [Dulera 100-5] Montelukast Tab [Singulair Tab] 10 mg PO DAILY 10/27/15 09/30/16 History Potassium Chloride 10 meq PO Q12H 10/27/15 09/30/16 History Vitamin E 400 unit PO QAM 10/27/15 09/30/16 History Calcium (Carb)/Vit D 600-400 1 tablet PO BID 09/30/16 09/30/16 History [Caltrate 600 + D] Furosemide Tab [Lasix Tab] 20 mg PO QAM 09/30/16 09/30/16 History Isosorbide Dinitrate 2.5 mg PO BID 09/30/16 09/30/16 History Lisinopril 2.5 mg PO QAM 09/30/16 09/30/16 History Pantoprazole Tab [Protonix Tab] 40 mg PO QPM 09/30/16 09/30/16 History Polyvinyl Alcohol [Artificial 1 drop BOTH EYES QID 09/30/16 09/30/16 History Tears] Spironolactone 25 mg PO BEDTIME 09/30/16 09/30/16 History hydrALAZINE TAB [Apresoline Tab] 10 mg PO BID 09/30/16 09/30/16 History Allergies Allergy/AdvReac Type Severity Reaction Status Date / Time Mayonnaise Allergy Mild vomit Verified 10/01/16 12:24 Iodinated Contrast Media - AdvReac Unknown/Unable Verified 11/24/14 08:17 Oral and to obtain latex AdvReac Unknown/Unable Verified 11/24/14 08:17 to obtain 12 point system: reviewed and no additional remarkable complaints except as stated (Per HPI) Medical,Surgical,& Family Hx - Medical History Cardio: History of: CHF, Hypertension, PVD, Cardiovascular Problems No history of: Aneurysm, Cardiac Dysrhythmia, Cerebrovascular Disease, Congenital Heart Disease, [place], Pacemaker, Valvular Heart Disease Psychological: History of: Depression Neurology: History of: Peripheral Neuropathy (both legs) No history of: Brain Aneurysm, Cerebral Hemorrhage, Cerebrovascular Accident , Cerebral Palsy, Dementia, Migraine, Multiple Sclerosis, Parkinson's Disease, Seizures, TIA, Vertigo, Neurologocal Cancer HEENT: History of: Eye Problem (cataract surgery), Dental Problems (poor dentition), Glaucoma No history of: Ear Problem, Oral Cancer Endocrine: History of: Diabetes Mellitus (NIDDM) (says she is diet controlled) No history of: Adrenal Disease, Diabetes Mellitus (IDDM), Dyslipidemia, Thyroid Disorder, Endocrine Cancer, Endocrine Problems Rheumatology: No history of;: Fibromyalgia, Gout, Myasthenia Gravis, Psoriasis, Rheumatoid Arthritis, Sjogrens, Systemic Lupus Erythematosus, Rheumatological Problems Respiratory: History of: Asthma, Intubation, Respiratory Problems (interstitial pulmonary fibrosis) No history of: Bronchitis, COPD, Obstructive Sleep Apnea, Pulmonary Embolism , Pulmonary Hypertension, Pneumonia, Lung Cancer Renal: No history of: Renal (Kidney) Cancer, Dialysis, Renal Failure Genitourinary: No history of: Bladder Problem, Kidney Stones, Recurring Urinary Tract Infections, Genitourinary Cancer, Problems Gastrointestinal: History of: Bowel Obstruction (partial was in the hospital in [place]), GI Problems (chronic intermittent nausea, emesis and diarrhea) No history of: Clostridium Difficile, Crohn's Disease, Diverticulitis/ Diverticulosis, Esophageal Varices, GERD, Gastrointestinal Bleed, Hemorrhoids, Hematochezia, Hepatitis, Liver Problems, Pancreatitis, Polyps, Ulcerative Colitis, Gastrointestinal Cancer Musculoskeletal: History of: Back/Neck Problems (pain- when she lays certain way ), Musculoskeletal Problems (can't walk from injury s/p fall from 4 years ago) No history of: Amputation, Degenerative Disk Disease, Herniated Disk, Osteoporosis, Musculoskeletal Cancer Hematology: History of: Anemia (hemolytic anemia) No history of: Blood Transfusion Reaction Other: History of: Anesthesia Reactions (couldn't wake her up), Anaphylaxis ( IVP dye) No history of: Cancer, Eczema, HIV, Malignant Hyperthermia, MRSA, Vancomycin- Resistant Enterococci, Skin Problems, Miscellaneous Medical Problems - Surgical History Cardiac Surgeries: Sugical HX of: Cardiac Catheterization, Cardiac Surgery ( biopsy breast, hysterectomy, sacral wound closure) Patient Denies: Femoral-Popliteal Bypass Graft, Carotid Endarterectomy, Internal Defibrillator, Vascular Access Devices Thoracic Surgeries: Patient denies;: Organ Transplant, Lobectomy Neurologic Surgeries: Patient denies: Brain Aneurysm, Cerebral Hemorrhage, Neurologic Surgery HEENT Surgeries: Surgical HX of: Eye Surgery (cataracts), Tonsilectomy & Adenoidectomy Patient denies: Carotid Endarterectomy, Thyroid Surgery Abdominal Surgeries: Patient denies: Abdominal Surgery, Appendectomy, Cholecystectomy, Colonoscopy , Gastric Bypass Surgery, EGD, Hernia Repair, Splenectomy Reproductive Surgeries: Surgical HX of;: Gynecologic Surgery, Hysterectomy Patient denies;: Breast Surgery, Section, Dilation and Curettage, Genitourinary Surgery, Tubal Ligation Orthopedic Surgeries: Patient denies;: Implanted Devices, Orthopedic Surgery, Spinal Surgery, Total Hip Replacement, Total Knee Replacement - Family History Family History: Reports;: Family Cancer (grandmother), Family Diabetes, Family Heart Disease, Family Hypertension Denies;: Family Psychiatric Problems, Family Stroke - Social History Smoking Status: Never smoker Frequency of Alcohol Use: None Type of Drug Use: None Infectious Disease Exam H&P - Constitutional Vitals: Vital Signs Temp Pulse Resp BP Pulse Ox 97.5 F L 55 L 20 112/53 100 10/03/16 11:34 10/03/16 11:34 10/03/16 11:34 10/03/16 11:34 10/03/16 11:34 Intake and Output 10/02/16 10/03/16 10/03/16 23:59 07:59 15:59 Intake Total 100 / 100 350 / 350 100 / 100 Output Total 600 / 600 450 / 450 Balance -500 / -500 -100 / -100 100 / 100 Intake: IV 100 / 100 350 / 350 100 / 100 Zosyn 3,375 mg In Ns 100 100 / 100 100 / 100 100 / 100 ml @ 25 mls/hr IV Q8H [facility] Rx#:[id number] Vancomycin Inj 1,000 mg 250 / 250 In Ns 250 ml @ 250 mls/hr IV Q12H [facility] Rx#: [id number] Output: Urine 600 / 600 450 / 450 Other: Voiding Method Indwelling Catheter Indwelling Catheter # Bowel Movements 0 0 Exam: General: Patient relatively comfortable, nontoxic appearing HEENT: Mucous membranes pink and moist, anicteric acyanotic, SHELLY, no oropharyngeal exudates Neck: Supple, no thyroid gland enlargement Respiratory system: Breath sounds vesicular, with diffuse dry crepitations bilaterally Cardiovascular: Normal S1 and S2, no murmurs appreciated Abdomen: Normal bowel sounds, soft nontender throughout, no organomegaly or mass Genitourinary: No suprapubic pain or bladder distention, clear urine from Lacy catheter Extremities: no edema Skin: No rash MS: Stage III ulcer to sacral area which has some sloughy material centrally but the outer part of the wound mostly pink, the wound is at least 45 cm wide. No purulent drainage and no surrounding erythema or induration Reports - Labs CBC & BMP: 10/03/16 05:22 10/03/16 05:22 Labs: Laboratory Results - last 24 hr 10/02/16 10/02/16 10/03/16 15:40 20:31 00:17 WBC RBC Hgb Hct MCV MCH MCHC RDW Plt Count MPV Neut % (Auto) Lymph % (Auto) Rich % (Auto) Eos % (Auto) Baso % (Auto) Neut # (Auto) Lymph # (Auto) Rich # (Auto) Eos # (Auto) Baso # (Auto) Immature Gran % Nucleated RBC % Immature Gran # Nucleated RBCs # Immature Plt Fraction Sodium Potassium Chloride Carbon Dioxide Anion Gap BUN Creatinine GFR Calculation BUN/Creatinine Ratio Glucose POC Glucose 100 83 95 Calculated Osmolality Calcium 10/03/16 10/03/16 10/03/16 05:22 05:22 07:44 WBC 7.3 RBC 3.45 L Hgb 9.9 L Hct 30.1 L MCV 87.2 MCH 29 MCHC 32.9 RDW 14.5 Plt Count 276 MPV 8.8 L Neut % (Auto) 53.2 Lymph % (Auto) 33.6 Rich % (Auto) 7.8 Eos % (Auto) 4.4 Baso % (Auto) 0.5 Neut # (Auto) 3.9 Lymph # (Auto) 2.5 Rich # (Auto) 0.6 Eos # (Auto) 0.3 Baso # (Auto) 0.0 Immature Gran % 0.5 Nucleated RBC % 0.0 Immature Gran # 0.04 Nucleated RBCs # 0.00 Immature Plt Fraction 0.0 Sodium 140 Potassium 3.9 Chloride 105 Carbon Dioxide 28 Anion Gap 10.9 BUN 18 Creatinine 0.50 L GFR Calculation 87 BUN/Creatinine Ratio 36.00 H Glucose 81 POC Glucose 93 Calculated Osmolality 279.4 Calcium 8.2 L 10/03/16 11:11 WBC RBC Hgb Hct MCV MCH MCHC RDW Plt Count MPV Neut % (Auto) Lymph % (Auto) Rich % (Auto) Eos % (Auto) Baso % (Auto) Neut # (Auto) Lymph # (Auto) Rich # (Auto) Eos # (Auto) Baso # (Auto) Immature Gran % Nucleated RBC % Immature Gran # Nucleated RBCs # Immature Plt Fraction Sodium Potassium Chloride Carbon Dioxide Anion Gap BUN Creatinine GFR Calculation BUN/Creatinine Ratio Glucose POC Glucose 161 H Calculated Osmolality Calcium - Reports Microbiology: Microbiology 10/01/16 09:58 Wound Culture - Preliminary Decubitus - Drainage Escherichia coli Staphylococcus schleiferi subsp schleiferi Gram Negative Rods Gram Positive Cocci - Diagnostic Findings Procedure: Chest x-ray: report reviewed by me (No acute pathology)
--- NOTE | 2016-10-03 14:33 | General Surgery Consult Note ---
Assessment and Plan - Time spent with patient Time spent with patient: Less than 30 minutes (1) Sacral wound Status: Chronic Assessment and plan: Impression: Sacral coccygeal decubitus ulcer unstageable Plan: We will start local wound care using some Santyl to the wound bed. She may require some debridement surgically. Current Visit: Yes History of Present Illness Chief complaint: Sacral decubitus ulcer History of present illness: Ms. Kinney is a 66 year old female female who is bedridden at this time and is in with some other medical problems. We are asked to see her for sacral ulcer at this time. She has an ulcer that is not very large but in the lower part of the sacrum around the coccygeal area with some necrotic fatty tissue in the center. This looks more like a sitting ulcer rather than a ulcer of the bed. Difficult to stage at this time but will start some local wound care now. Home Medications Medication Instructions Recorded Confirmed Type Folic Acid Tab 1 mg PO QAM 11/24/14 09/30/16 History Multivitamin [One Daily] 1 each PO DAILY W/BREAKFAST 11/24/14 09/30/16 History Thiamine Tab [Vitamin B1 Tab] 100 mg PO BEDTIME 11/24/14 09/30/16 History Vit B Cmplx 3/Folic AC/C/Biot 1 tablet PO QAM 11/24/14 09/30/16 History [Indigo-Emiliano Rx Tablet] Aspirin [Ecotrin] 81 mg PO QPM 10/27/15 09/30/16 History Carvedilol 3.125 mg PO BID 10/27/15 09/30/16 History Cholecalciferol (Vitamin D3) 50,000 units PO MO 10/27/15 09/30/16 History [Vitamin D3] Gabapentin 200 mg PO BEDTIME 10/27/15 09/30/16 History Mometasone/Formoterol 100-5 2 puffs PO BID 10/27/15 09/30/16 History [Dulera 100-5] Montelukast Tab [Singulair Tab] 10 mg PO DAILY 10/27/15 09/30/16 History Potassium Chloride 10 meq PO Q12H 10/27/15 09/30/16 History Vitamin E 400 unit PO QAM 10/27/15 09/30/16 History Calcium (Carb)/Vit D 600-400 1 tablet PO BID 09/30/16 09/30/16 History [Caltrate 600 + D] Furosemide Tab [Lasix Tab] 20 mg PO QAM 09/30/16 09/30/16 History Isosorbide Dinitrate 2.5 mg PO BID 09/30/16 09/30/16 History Lisinopril 2.5 mg PO QAM 09/30/16 09/30/16 History Pantoprazole Tab [Protonix Tab] 40 mg PO QPM 09/30/16 09/30/16 History Polyvinyl Alcohol [Artificial 1 drop BOTH EYES QID 09/30/16 09/30/16 History Tears] Spironolactone 25 mg PO BEDTIME 09/30/16 09/30/16 History hydrALAZINE TAB [Apresoline Tab] 10 mg PO BID 09/30/16 09/30/16 History Allergies Allergy/AdvReac Type Severity Reaction Status Date / Time Mayonnaise Allergy Mild vomit Verified 10/01/16 12:24 Iodinated Contrast Media - AdvReac Unknown/Unable Verified 11/24/14 08:17 Oral and to obtain latex AdvReac Unknown/Unable Verified 11/24/14 08:17 to obtain Medical,Surgical,& Family Hx - Medical History Cardio: History of: CHF, Hypertension, PVD, Cardiovascular Problems No history of: Aneurysm, Cardiac Dysrhythmia, Cerebrovascular Disease, Congenital Heart Disease, [place], Pacemaker, Valvular Heart Disease Psychological: History of: Depression Neurology: History of: Peripheral Neuropathy (both legs) No history of: Brain Aneurysm, Cerebral Hemorrhage, Cerebrovascular Accident , Cerebral Palsy, Dementia, Migraine, Multiple Sclerosis, Parkinson's Disease, Seizures, TIA, Vertigo, Neurologocal Cancer HEENT: History of: Eye Problem (cataract surgery), Dental Problems (poor dentition), Glaucoma No history of: Ear Problem, Oral Cancer Endocrine: History of: Diabetes Mellitus (NIDDM) (says she is diet controlled) No history of: Adrenal Disease, Diabetes Mellitus (IDDM), Dyslipidemia, Thyroid Disorder, Endocrine Cancer, Endocrine Problems Rheumatology: No history of;: Fibromyalgia, Gout, Myasthenia Gravis, Psoriasis, Rheumatoid Arthritis, Sjogrens, Systemic Lupus Erythematosus, Rheumatological Problems Respiratory: History of: Asthma, Intubation, Respiratory Problems (interstitial pulmonary fibrosis) No history of: Bronchitis, COPD, Obstructive Sleep Apnea, Pulmonary Embolism , Pulmonary Hypertension, Pneumonia, Lung Cancer Renal: No history of: Renal (Kidney) Cancer, Dialysis, Renal Failure Genitourinary: No history of: Bladder Problem, Kidney Stones, Recurring Urinary Tract Infections, Genitourinary Cancer, Problems Gastrointestinal: History of: Bowel Obstruction (partial was in the hospital in [place]), GI Problems (chronic intermittent nausea, emesis and diarrhea) No history of: Clostridium Difficile, Crohn's Disease, Diverticulitis/ Diverticulosis, Esophageal Varices, GERD, Gastrointestinal Bleed, Hemorrhoids, Hematochezia, Hepatitis, Liver Problems, Pancreatitis, Polyps, Ulcerative Colitis, Gastrointestinal Cancer Musculoskeletal: History of: Back/Neck Problems (pain- when she lays certain way ), Musculoskeletal Problems (can't walk from injury s/p fall from 4 years ago) No history of: Amputation, Degenerative Disk Disease, Herniated Disk, Osteoporosis, Musculoskeletal Cancer Hematology: History of: Anemia (hemolytic anemia) No history of: Blood Transfusion Reaction Other: History of: Anesthesia Reactions (couldn't wake her up), Anaphylaxis ( IVP dye) No history of: Cancer, Eczema, HIV, Malignant Hyperthermia, MRSA, Vancomycin- Resistant Enterococci, Skin Problems, Miscellaneous Medical Problems - Surgical History Cardiac Surgeries: Sugical HX of: Cardiac Catheterization, Cardiac Surgery ( biopsy breast, hysterectomy, sacral wound closure) Patient Denies: Femoral-Popliteal Bypass Graft, Carotid Endarterectomy, Internal Defibrillator, Vascular Access Devices Thoracic Surgeries: Patient denies;: Organ Transplant, Lobectomy Neurologic Surgeries: Patient denies: Brain Aneurysm, Cerebral Hemorrhage, Neurologic Surgery HEENT Surgeries: Surgical HX of: Eye Surgery (cataracts), Tonsilectomy & Adenoidectomy Patient denies: Carotid Endarterectomy, Thyroid Surgery Abdominal Surgeries: Patient denies: Abdominal Surgery, Appendectomy, Cholecystectomy, Colonoscopy , Gastric Bypass Surgery, EGD, Hernia Repair, Splenectomy Reproductive Surgeries: Surgical HX of;: Gynecologic Surgery, Hysterectomy Patient denies;: Breast Surgery, Section, Dilation and Curettage, Genitourinary Surgery, Tubal Ligation Orthopedic Surgeries: Patient denies;: Implanted Devices, Orthopedic Surgery, Spinal Surgery, Total Hip Replacement, Total Knee Replacement - Family History Family History: Reports;: Family Cancer (grandmother), Family Diabetes, Family Heart Disease, Family Hypertension Denies;: Family Psychiatric Problems, Family Stroke - Social History Smoking Status: Never smoker Frequency of Alcohol Use: None Type of Drug Use: None ROS unobtainable: due to mental status Exam - Constitutional Vitals: Period Temp Pulse Resp BP Sys/Moon Pulse Ox Last 24 Hr 96.9 F-97.5 F 53-68 18-20 108-118/51-57 95-100 General appearance: mild distress - Head Head exam: Present: normal inspection - ENT ENT exam: Present: normal exam - Neck Neck exam: Present: normal inspection - Respiratory Respiratory exam: Present: rales - Cardiovascular Cardiovascular exam: Present: RRR - GI/Abdominal GI/Abdominal exam: Present: hypoactive bowel sounds, soft - Extremities Exam Extremities exam: Absent: edema - Back Exam Back exam: Present: other (Sacral ulcer down towards the coccygeal area with some granulating tissue around the edges but little central fatty tissue.) - Neurological Exam Neurological exam: Present: altered - Skin Skin exam: Present: normal color, warm, dry Results - Labs CBC & BMP: 10/03/16 05:22 10/03/16 05:22 Lab Results: I have reviewed the past 24 hour labs
[2016-10-03] MEDS: COLLAGENASE OINT 30 GM TUBE TOP SCH (18:30)
[2016-10-03] MEDS: ENOXAPARIN 40 MG/0.4 ML SYRINGE SUBCUT SCH (21:47)
[2016-10-03] MEDS: GABAPENTIN 100 MG CAPSULE PO SCH (21:48)
[2016-10-03] MEDS: PANTOPRAZOLE 40 MG TABLET PO SCH (21:49)
[2016-10-03] MEDS: THIAMINE 100 MG TABLET PO SCH (21:49)
[2016-10-03] MEDS: SPIRONOLACTONE 25 MG TABLET PO SCH (21:52)
[2016-10-03] MEDS: ASPIRIN EC 81 MG TABLET PO SCH (21:52)
[2016-10-04] MEDS: INSULIN REGULAR 100 UNIT/ML SUBCUT SCH ×4 (08:09→22:54)
--- NOTE | 2016-10-04 08:59 | General Surgery Progress Note ---
Assessment and Plan - Time spent with patient Time spent with patient: Less than 30 minutes (1) Sacral decubitus ulcer Status: Acute Assessment and plan: 10/04/2016. Small sacral decubitus ulcer is stable. Her wound care has been initiated, and her discomfort is stable. Continue to offload the area. She may need some minimal debridement at some point. Current Visit: Yes Qualifiers: Pressure ulcer stage: unstageable Qualified Code(s): L89.150 - Pressure ulcer of sacral region, unstageable Subjective Patient reports: Present: no new complaints, still having pain, other (Her primary complaint of pain in bilateral lower extremities; she describes this as "neuropathy" and says she has this all the time.) Exam - Constitutional Vitals: Period Temp Pulse Resp BP Sys/Moon Pulse Ox Last 24 Hr 96.1 F-97.9 F 53-69 18-22 100-121/44-59 95-100 General appearance: no acute distress, other (Mrs. Kinney is smiling, alert, and cooperative with the visit. Her daughter is present and at the bedside.) - Extremities Exam Extremities exam: Present: normal inspection - Back Exam Back exam: Present: other (Coccygeal area with mild hyperemia but no true erythema. She has a small area of redness with a central ulcer. There is a little bit of loose slough but no bleeding, no odor, no necrotic skin.) Results - Labs CBC & BMP: 10/03/16 05:22 10/03/16 05:22 Lab Results: I have reviewed the past 24 hour labs
[2016-10-04] MEDS: ISOSORBIDE DINITRATE 10 MG TABLET PO SCH ×2 (09:53→22:47)
[2016-10-04] MEDS: MONTELUKAST 10 MG TABLET PO SCH (09:54)
[2016-10-04] MEDS: MOMETASONE/FORMOTEROL 100-5 INHALER 8.8 GM INH SCH ×2 (09:54→22:11)
[2016-10-04] MEDS: FERROUS SULFATE 325 MG TABLET PO SCH ×2 (09:54→22:48)
[2016-10-04] MEDS: LISINOPRIL 2.5 MG TABLET PO SCH (09:54)
[2016-10-04] MEDS: CARVEDILOL 3.125 MG TABLET PO SCH ×2 (09:55→22:48)
[2016-10-04] MEDS: IRON (CARBONYL) 45 MG TABLET PO SCH (09:55)
[2016-10-04] MEDS: FOLIC ACID 1 MG TABLET PO SCH (09:55)
[2016-10-04] MEDS: MULTIVITAMIN (CENTRUM) TABLET PO SCH (09:55)
[2016-10-04] MEDS: hydrALAZINE 10 MG TABLET PO SCH ×2 (09:55→22:48)
[2016-10-04] MEDS: CALCIUM (CARBONATE)/VITAMIN D 600 MG-400 UNIT TABLET PO SCH ×2 (09:55→22:48)
[2016-10-04] MEDS: POLYVINYL ALCOHOL 1.4% OPH SOLN 15 ML BOTTLE BOTH EYES SCH ×4 (09:58→22:12)
--- NOTE | 2016-10-04 11:55 | Hospitalist Progress Note ---
Assessment and Plan (1) Abdominal pain Status: Acute Assessment and plan: Improved. Appreciates GI's input. Current Visit: Yes (2) Sacral wound Status: Chronic Assessment and plan: WC grew gram negative rods and gram positive cocci. ID stopped antibiotics and recommended aggressive local wound care.Surgery suggests wound care and that she may require some debridement. Consult aggressive wound care Current Visit: Yes (3) Anemia Status: Chronic Assessment and plan: Iron level is low. GI feels this is due to losses with the pulmonary fibrosis suppressing her bone marrow as well as a sacral decubitus actually weeping blood. Plan continue with Fe supplements Current Visit: No (4) Pulmonary fibrosis Status: Acute Assessment and plan: History of chronic pulmonary fibrosis seems to be stable without any worsening symptoms subjectively. Oxygen prn. Evaluate for home o2. Current Visit: No (5) Type 2 diabetes mellitus Status: Chronic Assessment and plan: Blood sugar is stable, HbA1c level-5.8 Current Visit: No (6) Left bundle branch block (LBBB) Status: Chronic Assessment and plan: This is chronic, cardiac enzymes-negative, no chest pain, chest tightness. Current Visit: No Hospitalist: Subjective Interval history: Patient seen. No new issues. ID stopped antibiotics and recommended aggressive local wound care.Surgery suggests wound care and that she may require some debridement. Exam - Constitutional Vitals: Period Temp Pulse Resp BP Sys/Moon Pulse Ox Last 24 Hr 96.1 F-97.9 F 53-69 18-22 100-121/44-59 95-100 General appearance: no acute distress - Head Head exam: Present: normal inspection - Respiratory Respiratory exam: Present: clear to auscultation bilaterally - Cardiovascular Cardiovascular exam: Present: regular rate and rhythm - GI/Abdominal GI/Abdominal exam: Present: normal bowel sounds - Extremities Exam Extremities exam: Present: other (sacral ulcer) - Neurological Exam Neurological exam: Present: alert, oriented X3 Results - Labs CBC & BMP: 10/03/16 05:22 10/03/16 05:22 Lab Results: I have reviewed the past 24 hour labs
[2016-10-04] MEDS: COLLAGENASE OINT 30 GM TUBE TOP SCH (19:26)
[2016-10-04] MEDS: ONDANSETRON 4 MG/2 ML VIAL IV PRN (22:05)
[2016-10-04] MEDS: ENOXAPARIN 40 MG/0.4 ML SYRINGE SUBCUT SCH (22:11)
[2016-10-04] MEDS: ASPIRIN EC 81 MG TABLET PO SCH (22:48)
[2016-10-04] MEDS: THIAMINE 100 MG TABLET PO SCH (22:48)
[2016-10-04] MEDS: GABAPENTIN 100 MG CAPSULE PO SCH (22:48)
[2016-10-04] MEDS: PANTOPRAZOLE 40 MG TABLET PO SCH (22:49)
[2016-10-04] MEDS: SPIRONOLACTONE 25 MG TABLET PO SCH (22:49)
[2016-10-05] MEDS: ONDANSETRON 4 MG/2 ML VIAL IV PRN (03:34)
[2016-10-05] MEDS ORDERED: SULFAMETHOX/TRIMETHOPRIM 800-160 MG TABLET PO SCH (09:00)
[2016-10-05] MEDS: ISOSORBIDE DINITRATE 10 MG TABLET PO SCH (11:10)
[2016-10-05] MEDS: MULTIVITAMIN (CENTRUM) TABLET PO SCH (11:10)
[2016-10-05] MEDS: CALCIUM (CARBONATE)/VITAMIN D 600 MG-400 UNIT TABLET PO SCH (11:12)
[2016-10-05] MEDS: LISINOPRIL 2.5 MG TABLET PO SCH (11:12)
[2016-10-05] MEDS: FERROUS SULFATE 325 MG TABLET PO SCH (11:13)
[2016-10-05] MEDS: FOLIC ACID 1 MG TABLET PO SCH (11:13)
[2016-10-05] MEDS: IRON (CARBONYL) 45 MG TABLET PO SCH (11:13)
[2016-10-05] MEDS: hydrALAZINE 10 MG TABLET PO SCH (11:14)
[2016-10-05] MEDS: MONTELUKAST 10 MG TABLET PO SCH (11:14)
[2016-10-05] MEDS: CARVEDILOL 3.125 MG TABLET PO SCH (11:15)
[2016-10-05] MEDS: POLYVINYL ALCOHOL 1.4% OPH SOLN 15 ML BOTTLE BOTH EYES SCH (11:18)
[2016-10-05] MEDS: MOMETASONE/FORMOTEROL 100-5 INHALER 8.8 GM INH SCH (11:18)
--- NOTE | 2016-10-05 11:22 | General Surgery Progress Note ---
Assessment and Plan (1) Sacral wound Status: Chronic Assessment and plan: Impression: Sacral coccygeal decubitus ulcer unstageable Plan: We will start local wound care using some Santyl to the wound bed. She may require some debridement surgically. 10/05/2016 Wound is looking good and clean there is still a loose fatty tissue in the center but the rest of it is fairly clean. We will continue the Santyl to the wound bed followed up in the wound center. Current Visit: Yes Subjective Patient reports: Present: feels better, afebrile Exam - Constitutional Vitals: Period Temp Pulse Resp BP Sys/Moon Pulse Ox Last 24 Hr 97.1 F-98.2 F 53-77 18-20 97-139/45-71 92-98 General appearance: mild distress - Head Head exam: Present: normal inspection - Neck Neck exam: Present: normal inspection - Respiratory Respiratory exam: Present: rales - Cardiovascular Cardiovascular exam: Present: RRR - GI/Abdominal GI/Abdominal exam: Present: hypoactive bowel sounds, soft - Extremities Exam Extremities exam: Present: normal inspection - Back Exam Back exam: Present: other (Coccygeal ulcer is clean with still a little bit of loose fatty tissue in the center) - Neurological Exam Neurological exam: Present: alert, oriented X3, CN II-XII intact - Skin Skin exam: Present: normal color, warm, dry Results - Labs CBC & BMP: 10/03/16 05:22 10/03/16 05:22 Lab Results: I have reviewed the past 24 hour labs Specialty Discharge - Follow Up or Referrals Follow up with: Crispin Serna MD [Physician] - (wound care center in 3 weeks)
[2016-10-05] MEDS: INSULIN REGULAR 100 UNIT/ML SUBCUT SCH ×3 (11:29→18:54)
--- NOTE | 2016-10-05 11:39 | Discharge Summary ---
<John Jayavahenny - Last Filed: 10/05/16 11:16> Hospital Course - Hospital Course Hospital Course: Ms. Kinney is a 66 yr old female bedridden patient with a history of hypertension, CHF, PVD, pulmonary fibrosis, back injury, and diabetes that presented to the ED on 09/30 with complaints of nausea, vomiting, and abdominal pain. Pt. stated that she had been recently hospitalized at the [facility] for 7 days. Pt. was noted to have a sacral coccygeal decubitus ulcer unstageable. At the time of the admission, patient was accompanied by daughter who stated that the wound had grown bigger. Pt was admitted for further eval. GI was consulted. Due to patient's PF and current state (hct was stable), further workup was not suggested at this time. Pt's condition was monitored during her stay. She received wound care. A culture was taken from the sacral wound and grew out e coli, Staphylococcus schleiferi, klebsiella pneumoniae, staph aurerus methicillin resis. Infectious disease was consulted to evaluate. The recommendations were that no antibiotics be started but aggressive local wound care. General surgery was consulted and it was noted that patient may need debridement at some point. Today, the patient's abdominal pain has improved. Patient was started on iron supplementation for low iron. Pt. is stable to be discharged home with home health and wound care. Pt. is instructed to follow up as needed. Patient didn't qualify for home o2.Vitals are stable and she is ready for a discharge. Specialty Discharge - Follow Up or Referrals Follow up with: Crispin Serna MD [Physician] - (wound care center in 3 weeks) Discharge Plan - Discharge Data Disposition: Home Health Service - Discharge Medications New Collagenase Oint [Santyl Oint] 1 applic TOP DAILY applic HYDROcodone/ACETAMIN 5-325 [Garvin 5-325] 1 tablet PO Q4H PRN #20 tablet PRN Reason: Pain Mild (1-3) Insulin Regular [HumuLIN R] See Protocol SUBCUT ACHS #7 unit Skin Healing Oint (Aquaphor) [Aquaphor] 1 applic TOP PRN PRN #1 applic PRN Reason: Dry Skin Lisinopril [Prinivil] 2.5 mg PO QAM tablet Continue Vit B Cmplx 3/Folic AC/C/Biot [Indigo-Emiliano Rx Tablet] 1 tablet PO QAM Thiamine Tab [Vitamin B1 Tab] 100 mg PO BEDTIME Multivitamin [One Daily] 1 each PO DAILY W/BREAKFAST Folic Acid Tab 1 mg PO QAM Gabapentin 200 mg PO BEDTIME Cholecalciferol (Vitamin D3) [Vitamin D3] 50,000 units PO MO Vitamin E 400 unit PO QAM Aspirin [Ecotrin] 81 mg PO QPM Montelukast Tab [Singulair Tab] 10 mg PO DAILY Mometasone/Formoterol 100-5 [Dulera 100-5] 2 puffs PO BID Carvedilol 3.125 mg PO BID Isosorbide Dinitrate 2.5 mg PO BID hydrALAZINE TAB [Apresoline Tab] 10 mg PO BID Spironolactone 25 mg PO BEDTIME Calcium (Carb)/Vit D 600-400 [Caltrate 600 + D] 1 tablet PO BID Pantoprazole Tab [Protonix Tab] 40 mg PO QPM Polyvinyl Alcohol [Artificial Tears] 1 drop BOTH EYES QID Discontinued Potassium Chloride 10 meq PO Q12H Furosemide Tab [Lasix Tab] 20 mg PO QAM Lisinopril 2.5 mg PO QAM - Follow Up or Referral Follow Up: Crispin Serna MD [Physician] - (wound care center in 3 weeks) - Forms/Instructions Exam - Constitutional Vitals: Period Temp Pulse Resp BP Sys/Moon Pulse Ox Last 24 Hr 97.1 F-98.2 F 60-77 18-20 97-139/45-71 92-98 Discharge Results Procedures and tests throughout hospitalization: Pending Orders 09/30/16 16:03 Blood Culture Stat 10/05/16 03:56 Occult Blood, Stool Routine Labs on day of discharge: Labs from last 24 hours 10/05/16 10/05/16 10/04/16 11:52 07:27 19:41 POC Glucose 156 H 117 H 87 10/04/16 15:44 POC Glucose 127 H Preliminary micro results at discharge 09/30/16 16:03 Blood Culture - Preliminary Blood No growth at 3 days 09/30/16 16:21 Blood Culture - Preliminary Blood No growth at 3 days DS: Provider Date of admission: 09/30/16 19:48 Primary care physician: Benigno Victoria MD Attending physician on admission: Atif Tolentino MD Consults: 09/30/16 19:53 Consult to Wound Care - [place] [CONS] Routine Reason for Wound Care: Wound Care Management 10/02/16 09:36 Consult to Physician [CONS] Routine Comment: sacral wound Consulting Provider: Crispin Serna When should Consulting Provider be notified: In am Person Notified: beau Date Notified: 10/03/16 Time Notified: 08:42 10/02/16 10:36 Consult to Physician [CONS] Routine Comment: wound infection-ID consult Consulting Provider: Paola Kaur When should Consulting Provider be notified: In am Consult to Specialist Group: Infectious Disease When should Consulting Provider be notified: In am Person Notified: REEMA Date Notified: 10/03/16 Time Notified: 08:58 10/04/16 09:59 Consult to Case Mgmt/Social Srvs [CONS] Routine Reason for Case Mgmt/Social Srvs: Home Health Discharging clinician: Kimberly Jay NP <Jazmín Boyd - Last Filed: 10/05/16 12:42> Hospital Course - Time spent with patient Time with patient DS: Greater than 30 minutes (Time greater than 35mins) Diagnosis - Discharge Diagnosis (1) Abdominal pain Status: Acute (2) Sacral wound Status: Chronic (3) Anemia Status: Chronic (4) Pulmonary fibrosis Status: Acute (5) Type 2 diabetes mellitus Status: Chronic (6) Left bundle branch block (LBBB) Status: Chronic Discharge Plan - Discharge Data Condition at Discharge: Stable Discharge Diet: diabetic diet Activity: resume usual activities as tolerated - Forms/Instructions Additional Discharge Instructions: Follow with PCP in 1week Exam - Constitutional General appearance: no acute distress, cachectic - Head Head exam: Present: normal inspection - Respiratory Respiratory exam: Present: clear to auscultation bilaterally - Cardiovascular Cardiovascular exam: Present: regular rate and rhythm - GI/Abdominal GI/Abdominal exam: Present: normal bowel sounds - Extremities Exam Extremities exam: Present: other (sacral decubitus ulcer)
[2016-10-05 11:50] VITALS: BP 102/54
== END 2016-10-05 18:48 | disposition home health service (06) | DRG 594 ==
LOC: EDUNIT# → N.ED 15:12 → SUATTDRO 19:48 → N.EDINP 19:48 → N.2E 21:29
PROVIDERS: ADMIT Internal Medicine; ATTEND Internal Medicine

== ENCOUNTER 2017-01-18 15:00 | Inpatient (IN) ==
[2017-01-18] MEDS ORDERED: ONDANSETRON 4 MG/2 ML VIAL IV STA (15:34)
[2017-01-18] MEDS ORDERED: SODIUM CHLORIDE 0.9% 1,000 ML IV STA (15:34)
[2017-01-18] MEDS ORDERED: ONDANSETRON 4 MG/2 ML VIAL ONE (16:17)
[2017-01-18] MEDS ORDERED: MORPHINE 2 MG/1 ML SYRINGE IV PRN (18:23)
[2017-01-18] MEDS ORDERED: ONDANSETRON 4 MG/2 ML VIAL IV PRN (18:23)
[2017-01-18 19:43] LABS: Risk Ratio 2.22; VLDL CHOLESTEROL 14.6 MG/DL
[2017-01-18] MEDS: SODIUM CHLORIDE 0.45% 1,000 ML IV SCH (20:36)
[2017-01-19] MEDS ORDERED: DEXTROSE 50% 25 GM/50 ML VIAL IV PRN (05:50)
[2017-01-19] MEDS ORDERED: GLUCAGON 1 MG VIAL IM PRN (05:50)
[2017-01-19] MEDS: INSULIN REGULAR 100 UNIT/ML SUBCUT SCH ×4 (06:30→23:31)
[2017-01-19 07:23] LABS: Albumin 2.9 G/DL (3.4-5.0); Bilirubin,Total 0.8 MG/DL (0.2-1.0); Calcium 8.2 MG/DL (8.5-10.1); Magnesium 2.4 MG/DL (1.8-2.4); Osmolality,Calculated 268.1 MOS/KG (273-304); Potassium 3.8 MMOL/L (3.5-5.1); Total Protein 6.2 G/DL (6.4-8.3)
[2017-01-19] MEDS: PANTOPRAZOLE 40 MG VIAL IV SCH (09:05)
[2017-01-19] MEDS: ENOXAPARIN 40 MG/0.4 ML SYRINGE SUBCUT SCH (09:10)
[2017-01-19] MEDS: SODIUM CHLORIDE 0.45% 1,000 ML IV SCH ×2 (09:30→20:10)
[2017-01-19] MEDS: ZINC OXIDE PASTE 113 GM TUBE TOP SCH ×2 (17:11→20:10)
[2017-01-19] MEDS: GABAPENTIN 100 MG CAPSULE PO SCH (23:12)
[2017-01-20] MEDS: INSULIN REGULAR 100 UNIT/ML SUBCUT SCH ×3 (06:17→17:02)
[2017-01-20] MEDS: SODIUM CHLORIDE 0.45% 1,000 ML IV SCH (08:04)
[2017-01-20] MEDS: PANTOPRAZOLE 40 MG VIAL IV SCH (08:05)
[2017-01-20] MEDS: ENOXAPARIN 40 MG/0.4 ML SYRINGE SUBCUT SCH (08:05)
[2017-01-20] MEDS: ZINC OXIDE PASTE 113 GM TUBE TOP SCH ×2 (08:05→20:15)
[2017-01-20] MEDS: GABAPENTIN 100 MG CAPSULE PO SCH (20:15)
[2017-01-20 22:03] LABS: Apearance,Urine CLEAR (Clear); Bilirubin,Urine Negative (Negative); Blood, Urine Small mg/dL (Negative); Glucose,Urine (UA) Negative (Negative); Hyaline Casts,Urine 1 /LPF (0-3); Ketones,Urine Negative (Negative); Mucus,Urine Occasional /LPF (Occasional); Nitrite,Urine Negative (Negative); Protein,Urine Negative; RBC,Urine 1 /HPF (0-4); Squamous Epithelial Cell,Urine Occasional /HPF (0-10); Urine Color Yellow (Yellow); Urine Specific Gravity 1.009 (1.001-1.035); Urine Urobilinogen < 2.0 EU/DL (0.2-1.0); WBC,Urine 1 /HPF (0-6)
[2017-01-21] MEDS: INSULIN REGULAR 100 UNIT/ML SUBCUT SCH ×3 (01:34→13:04)
[2017-01-21 06:56] VITALS: BP 110/51
[2017-01-21] MEDS: ENOXAPARIN 40 MG/0.4 ML SYRINGE SUBCUT SCH (09:16)
[2017-01-21] MEDS: ZINC OXIDE PASTE 113 GM TUBE TOP SCH (09:16)
[2017-01-21] MEDS: PANTOPRAZOLE 40 MG VIAL IV SCH (09:16)
== END 2017-01-21 13:59 | disposition home health service (06) | DRG 382 ==
LOC: EDBD → EDUNIT# → N.ED 15:00 → N.EDINP 16:56 → SUATTDRO 16:56 → N.5E 19:00
PROVIDERS: ADMIT Internal Medicine; ATTEND Internal Medicine Cardiovascular Disease

== ENCOUNTER 2017-09-12 20:03 | Inpatient (IN) ==
[2017-09-13 05:54] LABS: Basophils % 0.4 % (0.0-0.8); Eosinophils # 0.2 10*3/uL (0.0-0.87); Eosinophils % 4.6 % (0.00-10.9); Hematocrit 34.9 VOL% (35.7-47.0); Hemoglobin 11.4 GM/DL (12.0-16.0); Immature Granulocytes % 0.2 %; Immature Granulocytes Absolute 0.01 #; Lymphocytes # 1.6 10*3/uL (1.4-4.0); Lymphocytes % 30.7 % (21.3-54.2); Mean Corpuscular HGB Conc 32.7 GM/DL (32-36); Mean Corpuscular Hemoglobin 30 PG (27-34); Mean Corpuscular Volume 91.8 FL (87-102); Mean Platelet Volume 8.7 FL (9.6-12.0); Monocytes # 0.4 10*3/uL (0.11-0.8); Monocytes % 8.4 % (1.7-12.7); Neutrophils # 2.9 10*3/uL (1.4-7.4); Neutrophils % 55.7 % (38.7-73.9); Platelet Count 201 T/CUMM (130-400); Red Cell Distribution Width 16.6 % (9.3-17.3); White Blood Count 5.2 T/CUMM (4-12)
[2017-09-13 06:27] LABS: Albumin 2.3 G/DL (3.4-5.0); Bilirubin,Total 0.5 MG/DL (0.2-1.0); Calcium 7.7 MG/DL (8.5-10.1); Osmolality,Calculated 286.6 MOS/KG (273-304); Potassium 2.8 MMOL/L (3.5-5.1); Total Protein 5.9 G/DL (6.4-8.3)
[2017-09-14 07:07] LABS: Calcium 7.9 MG/DL (8.5-10.1); Osmolality,Calculated 278.1 MOS/KG (273-304); Potassium 3.9 MMOL/L (3.5-5.1)
[2017-09-14 11:44] VITALS: BP 146/82
== END 2017-09-14 15:40 | disposition home or self-care (01) | DRG 389 ==
LOC: EDUNIT# → N.ED 20:03 → N.EDINP 21:03 → N.3E 21:47
PROVIDERS: ADMIT Surgery; ATTEND Surgery